=== PATIENT | male | born 1950 | race Two or more races ===

== ENCOUNTER 2016-05-20 23:36 | Inpatient (IN) | payer OTHER ==
[~2016-05-20] VITALS: Ht 167.6 cm; Wt 84.0 kg
[2016-05-20] MEDS ORDERED: ONDANSETRON HCL 4 MG/2 ML VIAL ONE (23:46)
[2016-05-20] MEDS ORDERED: MORPHINE SULFATE 4 MG/ML SYRG ONE (23:46)
[2016-05-20] MEDS ORDERED: HEPARIN SODIUM (PORCINE) 5000 UNITS/ML 1ML VIAL ONE (23:46)
[2016-05-21] VITALS (75 sets, daily range): BP systolic 104–160; BP diastolic 57–119
[2016-05-21] MEDS ORDERED: LIDOCAINE 2%HCL (LOCAL ANESTH.) INJ 20ML MDV ONE (00:06)
[2016-05-21] MEDS ORDERED: IOHEXOL 350 MG/ML 100ML IJ ONE (00:06)
[2016-05-21] MEDS ORDERED: EPTIFIBATIDE INJ (2MG/ML) 10ML VIAL IV ONE (00:08)
[2016-05-21] MEDS ORDERED: ANGIOMAX 250 MG VIAL IV ONE (00:08)
[2016-05-21] MEDS ORDERED: fentaNYL CITRATE 100 MCG/2 ML VL ONE (00:08)
[2016-05-21] MEDS ORDERED: SODIUM CHL 0.9% 50 ML ONE (00:08)
[2016-05-21] MEDS ORDERED: MIDAZOLAM HCL 1MG/1ML-2 ML VIAL ONE (00:08)
[2016-05-21 00:22] LABS: Basophils # (auto) 0.2 uL; Basophils % (auto) 1.7 % (0.0-2.0); Eosinophils # (auto) 0.1 uL; Hematocrit 53.2 % (41.0-53.0); Hemoglobin 17.3 g/dL (13.5-17.5); Lymphocytes # (auto) 2.3 uL; Lymphocytes % (auto) 16.2 % (10.0-50.0); Mean Corpuscular Hgb Conc. 32.6 g/dL (32.0-36.0); Mean Corpuscular Volume 89.1 fL (80.0-100.0); Mean Platelet Volume 9.6 fL (7.4-10.4); Monocytes # (auto) 1.3 uL; Monocytes % (auto) 9.1 % (0.0-12.0); Neutrophils # (auto) 10.4 uL; Platelet Count (auto) 319 10^3/uL (140-450); Red Cell Distribution Width 12.4 % (11.6-16.0); SUSPECT VIEW TRANSMISSION; White Blood Cell 14.3 10^3/uL (4.4-10.8)
[2016-05-21] MEDS ORDERED: NITROGLYCERIN 0.4MG/DOSE SPRAY 4.9GM ONE (00:30)
[2016-05-21 00:40] LABS: INR 1.07 (0.9-1.15); Partial Thromboplastin Time 28.9 sec (22.64-33.71)
[2016-05-21] MEDS ORDERED: NITROGLYCERIN 50MG/250ML 250 ML IV ONE ×2 (00:41→01:00)
[2016-05-21] MEDS ORDERED: HEPARIN DRIP/D5W 100UNITS/ML 250 ML IV ONE (00:42)
[2016-05-21 00:43] LABS: Albumin 3.9 g/dL (3.4-5.0); BUN/Creatinine Ratio 9.4; Calcium 9.9 mg/dL (8.5-10.1); Magnesium 2.1 mg/dL (1.6-2.6); Potassium 5.5 mmol/L (3.5-5.1)
[2016-05-21 00:46] LABS: Bilirubin, Total 0.5 mg/dL (0.2-1.0); Total Protein 8.3 g/dL (6.4-8.2)
[2016-05-21 00:49] LABS: B-Type Natriuretic Peptide 30.7 pg/mL (0-100); Temperature: 21.9 C (20.0-25.0)
[2016-05-21] MEDS ORDERED: NITROGLYCERIN 0.4 MG SL TAB SL PRN (01:00)
[2016-05-21] MEDS ORDERED: DEXTROSE (50%) 50ML SYRG IV PRN (01:00)
[2016-05-21] MEDS ORDERED: HEPARIN SODIUM (PORCINE) 5000 UNITS/ML 1ML VIAL IV ONE (01:00)
[2016-05-21] MEDS ORDERED: MORPHINE SULFATE 4 MG/ML SYRG IV ONE (01:15)
[2016-05-21] MEDS ORDERED: ONDANSETRON HCL 4 MG/2 ML VIAL IV ONE (01:15)
[2016-05-21] MEDS: HEPARIN DRIP/D5W 100UNITS/ML 250 ML IV SCH ×2 (01:20→21:39)
[2016-05-21] MEDS: MORPHINE SULF INJ 2 MG/ML SYRINGE 1ML IV PRN ×2 (03:24→13:18)
[2016-05-21] MEDS: InsuLIN REG 1unit/0.01ml Soln (100units/ml) SC SCH ×3 (06:00→18:05)
[2016-05-21] MEDS ORDERED: HEPARIN SODIUM (PORCINE) 5000 UNITS/ML 1ML VIAL SC SCH (06:00)
[2016-05-21] MEDS: ACCU-CHEK COMFORT CURVE STRIP VI SCH ×3 (06:26→17:54)
[2016-05-21 06:35] LABS: Basophils # (auto) 0.1 uL; Basophils % (auto) 0.4 % (0.0-2.0); Eosinophils # (auto) 0.1 uL; Eosinophils % (auto) 0.6 % (0.0-7.0); Hematocrit 44.7 % (41.0-53.0); Hemoglobin 14.7 g/dL (13.5-17.5); Lymphocytes # (auto) 2.1 uL; Lymphocytes % (auto) 16.2 % (10.0-50.0); Mean Corpuscular Hemoglobin 28.9 pg (28.0-32.0); Mean Corpuscular Hgb Conc. 32.9 g/dL (32.0-36.0); Mean Corpuscular Volume 87.8 fL (80.0-100.0); Monocytes # (auto) 0.8 uL; Neutrophils % (auto) 76.8 % (37.0-80.0); Platelet Count (auto) 277 10^3/uL (140-450); Red Cell Distribution Width 13.2 % (11.6-16.0)
[2016-05-21 06:50] LABS: INR 1.08 (0.9-1.15); Partial Thromboplastin Time 56.6 sec (22.64-33.71); Prothrombin Time 11.1 sec (9.37-12.3)
[2016-05-21] MEDS ORDERED: METOPROLOL TARTRATE 1MG/1ML-5ML VIAL IV ONE ×2 (07:43→07:45)
[2016-05-21] MEDS ORDERED: ACCU-CHEK COMFORT CURVE STRIP VI ONE (07:45)
[2016-05-21] MEDS ORDERED: CHLORHEXIDINE 4% TOPICAL soln 473ML TOP ONE (07:45)
[2016-05-21] MEDS ORDERED: CHLORHEXIDINE 0.12% ORAL rinse 473ML MT ONE (07:45)
[2016-05-21 07:55] LABS: BUN/Creatinine Ratio 14.3; Calcium 9.1 mg/dL (8.5-10.1); Potassium 3.9 mmol/L (3.5-5.1)
[2016-05-21 08:32] LABS: Cholesterol 182 mg/dL (<200); HDL Cholesterol 43 mg/dL (40-59); LDL Cholesterol 118 mg/dL (<100); Triglycerides 162 mg/dL (<150)
[2016-05-21 08:43] LABS: Urine Bilirubin Negative (Negative); Urine Color Yellow (Yellow); Urine Ketone Negative (Negative); Urine Nitrite Negative (Negative); Urine RBC 11 /hpf (0 - 3); Urine Squamous Epithelial Cell FEW /hpf (<5); Urine Urobilinogen Normal (Negative); Urine pH 5.5 (5.0-8.0)
[2016-05-21 08:47] LABS: Urine Blood 1+ /uL (Negative); Urine Glucose 3+ mg/dL (Normal)
[2016-05-21] MEDS ORDERED: METOPROLOL TARTRATE 25 MG TAB PO ONE (08:50)
[2016-05-21] MEDS ORDERED: METOPROLOL SUCCINATE XL 50 MG TAB PO ONE (10:00)
[2016-05-21] MEDS ORDERED: ARTIFICIAL TEARS 15ml EACHEYE PRN (11:00)
[2016-05-21] MEDS ORDERED: GLIM4TAB42 PO (18:29)
[2016-05-21] MEDS ORDERED: METF-312 PO (18:29)
[2016-05-21] MEDS ORDERED: ALLO300T2 PO (18:29)
[2016-05-21] MEDS: METOPROLOL TARTRATE 25 MG TAB PO SCH (21:37)
[2016-05-21] MEDS ORDERED: METOPROLOL TARTRATE 25 MG TAB PO SCH ×2 (22:00)
[2016-05-22] VITALS (25 sets, daily range): BP systolic 111–162; BP diastolic 44–95
[2016-05-22] MEDS: ACCU-CHEK COMFORT CURVE STRIP VI SCH ×4 (00:04→18:26)
[2016-05-22] MEDS: InsuLIN REG 1unit/0.01ml Soln (100units/ml) SC SCH ×4 (00:07→18:23)
[2016-05-22 03:49] LABS: Basophils # (auto) 0 uL; Basophils % (auto) 0.1 % (0.0-2.0); Eosinophils # (auto) 0.1 uL; Eosinophils % (auto) 0.6 % (0.0-7.0); Hematocrit 42.8 % (41.0-53.0); Hemoglobin 14.3 g/dL (13.5-17.5); Lymphocytes # (auto) 1.6 uL; Lymphocytes % (auto) 13.2 % (10.0-50.0); Mean Corpuscular Hemoglobin 29.1 pg (28.0-32.0); Mean Corpuscular Hgb Conc. 33.4 g/dL (32.0-36.0); Mean Corpuscular Volume 87.2 fL (80.0-100.0); Mean Platelet Volume 8.9 fL (7.4-10.4); Monocytes % (auto) 8.3 % (0.0-12.0); Neutrophils # (auto) 9.6 uL; Neutrophils % (auto) 77.8 % (37.0-80.0); Platelet Count (auto) 239 10^3/uL (140-450); White Blood Cell 12.4 10^3/uL (4.4-10.8)
[2016-05-22 04:10] LABS: BUN/Creatinine Ratio 10.8; Magnesium 1.9 mg/dL (1.6-2.6); Potassium 3.9 mmol/L (3.5-5.1)
[2016-05-22] MEDS ORDERED: NITROGLYCERIN 50MG/250ML 250 ML IV ONE (08:09)
[2016-05-22] MEDS: NITROGLYCERIN 50MG/250ML 250 ML IV SCH (08:18)
[2016-05-22] MEDS: METOPROLOL TARTRATE 25 MG TAB PO SCH ×2 (09:37→21:32)
[2016-05-22] MEDS: MORPHINE SULF INJ 2 MG/ML SYRINGE 1ML IV PRN ×2 (10:09→17:20)
[2016-05-22] MEDS ORDERED: ALBUTEROL SULF 2.5 MG/0.5ML(0.5%) NEB SOLN NEB PRN (14:15)
[2016-05-22] MEDS ORDERED: TEMAZEPAM 15 MG CAP PO PRN (14:30)
[2016-05-22] MEDS ORDERED: AMIODARONE HCL 200 MG TAB PO ONE (15:00)
[2016-05-22] MEDS ORDERED: ALPRAZolam 0.25 MG TAB ONE (15:24)
[2016-05-22] MEDS: ALPRAZolam 0.25 MG TAB PO SCH (15:31)
[2016-05-22] MEDS ORDERED: IPRATROPIUM BROM 0.5 MG/2.5ML INH SOL NEB SCH (18:00)
[2016-05-22] MEDS: HEPARIN DRIP/D5W 100UNITS/ML 250 ML IV SCH (18:26)
[2016-05-22] MEDS: HYDROmorphone HCL 2 MG/ML VL IV PRN (21:32)
[2016-05-22] MEDS: ATORVASTATIN 20 MG TAB PO SCH (21:33)
[2016-05-23] VITALS (35 sets, daily range): BP systolic 102–133; BP diastolic 53–101
[2016-05-23] MEDS: NITROGLYCERIN 50MG/250ML 250 ML IV SCH (00:30)
[2016-05-23] MEDS: ACCU-CHEK COMFORT CURVE STRIP VI SCH ×4 (00:30→17:51)
[2016-05-23] MEDS: InsuLIN REG 1unit/0.01ml Soln (100units/ml) SC SCH ×4 (00:34→17:53)
[2016-05-23 05:03] LABS: INR 1.1 (0.9-1.15); Partial Thromboplastin Time 61.9 sec (22.64-33.71); Prothrombin Time 11.3 sec (9.37-12.3)
[2016-05-23] MEDS: HYDROmorphone HCL 2 MG/ML VL IV PRN ×3 (08:59→21:34)
[2016-05-23] MEDS ORDERED: MELATAB2 PO (09:06)
[2016-05-23] MEDS: METOPROLOL TARTRATE 25 MG TAB PO SCH ×2 (09:13→21:39)
[2016-05-23] MEDS: AMIODARONE HCL 200 MG TAB PO SCH (09:13)
[2016-05-23] MEDS: ALPRAZolam 0.25 MG TAB PO SCH ×2 (09:15→21:39)
[2016-05-23] MEDS ORDERED: MAGNESIUM CITRATE SOLUTION 300 ML BTL PO ONE ×2 (10:00→14:00)
[2016-05-23] MEDS: HEPARIN DRIP/D5W 100UNITS/ML 250 ML IV SCH (13:30)
[2016-05-23] MEDS: ATORVASTATIN 20 MG TAB PO SCH (21:39)
[2016-05-24] VITALS (67 sets, daily range): BP systolic 99–157; BP diastolic 43–119
[2016-05-24] MEDS: InsuLIN REG 1unit/0.01ml Soln (100units/ml) SC SCH ×4 (00:53→17:54)
[2016-05-24] MEDS: HYDROmorphone HCL 2 MG/ML VL IV PRN ×2 (02:58→09:09)
[2016-05-24 03:52] LABS: Basophils # (auto) 0 uL; Basophils % (auto) 0.1 % (0.0-2.0); Eosinophils # (auto) 0.1 uL; Eosinophils % (auto) 0.9 % (0.0-7.0); Hemoglobin 13.6 g/dL (13.5-17.5); Lymphocytes # (auto) 1.2 uL; Lymphocytes % (auto) 9.7 % (10.0-50.0); Mean Corpuscular Hemoglobin 29.7 pg (28.0-32.0); Mean Corpuscular Volume 87.3 fL (80.0-100.0); Mean Platelet Volume 9.2 fL (7.4-10.4); Monocytes # (auto) 1.2 uL; Monocytes % (auto) 9.6 % (0.0-12.0); Neutrophils # (auto) 10.1 uL; Neutrophils % (auto) 79.7 % (37.0-80.0); Platelet Count (auto) 180 10^3/uL (140-450); Red Cell Distribution Width 13.1 % (11.6-16.0); White Blood Cell 12.7 10^3/uL (4.4-10.8)
[2016-05-24 03:59] LABS: INR 1.14 (0.9-1.15); Partial Thromboplastin Time 54.7 sec (22.64-33.71); Prothrombin Time 11.7 sec (9.37-12.3)
[2016-05-24 04:04] LABS: Calcium 8.1 mg/dL (8.5-10.1); Potassium 4.2 mmol/L (3.5-5.1)
[2016-05-24 04:06] LABS: BUN/Creatinine Ratio 15.2
[2016-05-24] MEDS: HEPARIN DRIP/D5W 100UNITS/ML 250 ML IV SCH ×3 (06:00→23:44)
[2016-05-24] MEDS: NITROGLYCERIN 50MG/250ML 250 ML IV SCH (06:00)
[2016-05-24] MEDS: ACCU-CHEK COMFORT CURVE STRIP VI SCH ×4 (06:00→17:51)
[2016-05-24] MEDS: AMIODARONE HCL 200 MG TAB PO SCH ×2 (09:48→12:10)
[2016-05-24] MEDS: METOPROLOL TARTRATE 25 MG TAB PO SCH ×3 (09:48→21:38)
[2016-05-24] MEDS: ALPRAZolam 0.25 MG TAB PO SCH ×2 (09:48→21:37)
[2016-05-24] MEDS ORDERED: METOCLOPRAMIDE HCL 5MG/ml INJ 2ml VIAL ONE (09:55)
[2016-05-24] MEDS ORDERED: METOCLOPRAMIDE HCL 5MG/ml INJ 2ml VIAL IV PRN (10:00)
[2016-05-24] MEDS ORDERED: MUPIROCIN 2% OINT 22GM TOP ONE (20:28)
[2016-05-24] MEDS ORDERED: CHLORHEXIDINE 0.12% ORAL rinse 473ML MT ONE (20:28)
[2016-05-24] MEDS ORDERED: MUPIROCIN 2% OINT 22GM TOP SCH (21:00)
[2016-05-24] MEDS: MUPIROCIN 2% OINT 22GM TOP SCH (21:35)
[2016-05-24] MEDS: ATORVASTATIN 20 MG TAB PO SCH (21:37)
[2016-05-25] VITALS (45 sets, daily range): BP systolic 19–135; BP diastolic 6–75
[2016-05-25] MEDS: InsuLIN REG 1unit/0.01ml Soln (100units/ml) SC SCH ×2 (00:08→05:38)
[2016-05-25] MEDS: ACCU-CHEK COMFORT CURVE STRIP VI SCH ×10 (00:09→23:09)
[2016-05-25] MEDS ORDERED: CHLORHEXIDINE 4% TOPICAL soln 473ML TOP ONE ×2 (02:00)
[2016-05-25] MEDS: MORPHINE SULF INJ 2 MG/ML SYRINGE 1ML IV PRN (02:10)
[2016-05-25] MEDS ORDERED: CHLORHEXIDINE 0.12% ORAL rinse 473ML MT ONE ×2 (05:00→06:00)
[2016-05-25] MEDS ORDERED: ACCU-CHEK COMFORT CURVE STRIP VI ONE ×2 (06:00)
[2016-05-25] MEDS: MUPIROCIN 2% OINT 22GM TOP SCH (06:39)
[2016-05-25] MEDS ORDERED: ROCURONIUM 10MG/ML 10ML VIAL IV ONE ×2 (06:44→11:44)
[2016-05-25] MEDS ORDERED: PAPAVERINE HCL 60 MG/2 ML 2ML VIAL ONE (06:45)
[2016-05-25] MEDS ORDERED: NEOMYCIN-BACITRACIN-POLYM 15GM TOP OINT TOP ONE (06:45)
[2016-05-25] MEDS ORDERED: ceFAZolin 1GM VL ONE (06:45)
[2016-05-25] MEDS ORDERED: HEPARIN 1,000 UNITS/ml 1ML VIAL ONE (06:45)
[2016-05-25] MEDS ORDERED: MIDAZOLAM HCL 1MG/1ML-2 ML VIAL ONE (06:50)
[2016-05-25] MEDS ORDERED: ePHEDrine SULFATE 50 MG/ML AMP ONE (06:53)
[2016-05-25] MEDS ORDERED: LIDOCAINE 2%HCL (LOCAL ANESTH.) INJ 20ML MDV ONE (06:53)
[2016-05-25] MEDS ORDERED: ALBUMIN 25% 200 ML IV ONE (06:59)
[2016-05-25] MEDS ORDERED: ceFAZolin 1GM 2 GM in D5W 5% 50 ML IV ONE (07:00)
[2016-05-25] MEDS ORDERED: VANCOMYCIN 1GM/250ML D5W 250 ML IV ONE (07:00)
[2016-05-25] MEDS ORDERED: VASOPRESSIN 50 UNITS in SODIUM CHL 0.9% 247.5 ML IV ONE (08:00)
[2016-05-25] MEDS ORDERED: EPINEPHrine HCL INJECTION 4 MG in D5W 5% 250 ML IV ONE (08:00)
[2016-05-25] MEDS ORDERED: HEPARIN 30000 UNITS in SODIUM CHLORIDE 0.9% 1000 ML IV ONE (08:00)
[2016-05-25] MEDS ORDERED: AMINOCAPROIC ACID 10 GM in SODIUM CHL 0.9% 100 ML IV ONE (08:00)
[2016-05-25] MEDS ORDERED: InsuLIN R (HUMAN) 100 UNITS in SODIUM CHL 0.9% 99 ML IV ONE (08:00)
[2016-05-25] MEDS ORDERED: AMINOCAPROIC ACID 5 GM in SODIUM CHL 0.9% 250 ML IV ONE (08:00)
[2016-05-25] MEDS ORDERED: PHENYLEPHRINE INJ 20 MG in NS 0.9% 248 ML IV ONE (08:00)
[2016-05-25] MEDS: NITROGLYCERIN 50MG/250ML 250 ML IV SCH (08:13)
[2016-05-25] MEDS ORDERED: fentaNYL CITRATE 10 ML ONE (08:26)
[2016-05-25] MEDS ORDERED: PLASMA-LYTE A pH7.4 5,000 ML INJ ONE (08:41)
[2016-05-25] MEDS ORDERED: PROPOFOL 100 ML IV ONE ×2 (09:20→11:28)
[2016-05-25] MEDS ORDERED: POTASSIUM CHL 2MEQ/ML 20ML IV ONE (09:45)
[2016-05-25] MEDS ORDERED: MAGNESIUM SULF 50% 40 MEQ/10 ML VL IV ONE (09:45)
[2016-05-25] MEDS ORDERED: MILRINONE 1 MG/ML 20ML VIAL INJ IV ONE (09:45)
[2016-05-25] MEDS ORDERED: PHENYLEPHRINE HCL 10 MG/ML VL IV ONE (09:45)
[2016-05-25] MEDS ORDERED: SODIUM BICARBONATE 8.4 % INJ 50ML VIAL IV ONE (09:45)
[2016-05-25] MEDS ORDERED: DEXAMETHASONE SODIUM PHOSP 120 MG/30ml VIAL IV ONE (09:45)
[2016-05-25] MEDS ORDERED: LIDOCAINE HCL 100 MG/5ML (2%) SYRG INJ IV ONE ×2 (09:45→10:11)
[2016-05-25] MEDS ORDERED: ADENOSINE 6 MG/2 ML INJ IV ONE (09:45)
[2016-05-25] MEDS ORDERED: CALCIUM CHLOR(10%) 100MG/ML 10ML SYRINGE IV ONE ×2 (09:45→10:12)
[2016-05-25] MEDS ORDERED: HEPARIN SODIUM (PORCINE) 5000 UNITS/ML 1ML VIAL SC ONE (09:45)
[2016-05-25] MEDS ORDERED: AMINOCAPROIC ACID 5 GM/20 ML VL IV ONE (09:45)
[2016-05-25] MEDS ORDERED: DOBUTamine 1000MCG/ML 250 ML IV ONE (10:08)
[2016-05-25] MEDS ORDERED: DOPamine 1600MCG/ML 250 ML IV ONE (10:08)
[2016-05-25] MEDS ORDERED: NITROGLYCERIN 50MG/250ML 250 ML IV ONE (10:09)
[2016-05-25] MEDS ORDERED: NOREPINEPHRINE BITARTRATE 250 ML IV ONE ×2 (10:09→11:46)
[2016-05-25] MEDS ORDERED: NICARDIPINE 25MG/250ML BAG KIT 250 ML IV ONE (10:09)
[2016-05-25] MEDS ORDERED: MILRINONE 20MG/100ML 100 ML IV ONE ×2 (10:09→11:47)
[2016-05-25] MEDS ORDERED: PHENYLEPHRINE IV 250 ML IV ONE (10:10)
[2016-05-25] MEDS ORDERED: AMIODARONE HCL (50 MG/ ML) 3 ML VIAL IV ONE (10:10)
[2016-05-25] MEDS ORDERED: VASOPRESSIN 20 UNIT/ML ONE (10:10)
[2016-05-25] MEDS ORDERED: ALBUMIN 5% 750 ML IV ONE (10:11)
[2016-05-25] MEDS ORDERED: SODIUM BICARBONATE 8.4% INJ 50ML SYRINGE ONE (10:12)
[2016-05-25] MEDS ORDERED: AMIODARONE HCL 900 MG in DEXTROSE 500 ML IV SCH ×2 (14:58→20:58)
[2016-05-25] MEDS ORDERED: MAGNESIUM SULFATE 1GM/100ML 100 ML IV PRN (15:00)
[2016-05-25] MEDS ORDERED: ONDANSETRON HCL 4 MG/2 ML VIAL IV PRN (15:00)
[2016-05-25] MEDS ORDERED: MORPHINE SULFATE 4 MG/ML SYRG IV PRN (15:00)
[2016-05-25] MEDS ORDERED: SODIUM BICARBONATE 8.4% INJ 50ML SYRINGE IV PRN (15:00)
[2016-05-25] MEDS ORDERED: IPRATROPIUM BROM 0.5 MG/2.5ML INH SOL NEB PRN (15:00)
[2016-05-25] MEDS ORDERED: AMIODARONE HCL 150 MG in D5W 5% 100 ML IV ONE (15:00)
[2016-05-25 15:34] LABS: Hematocrit 34.8 % (41.0-53.0); Hemoglobin 11.7 g/dL (13.5-17.5); Mean Corpuscular Hemoglobin 29.3 pg (28.0-32.0); Mean Corpuscular Hgb Conc. 33.5 g/dL (32.0-36.0); Mean Corpuscular Volume 87.3 fL (80.0-100.0); Mean Platelet Volume 8.7 fL (7.4-10.4); Platelet Count (auto) 145 10^3/uL (140-450); Red Cell Distribution Width 13.3 % (11.6-16.0); SUSPECT VIEW TRANSMISSION; White Blood Cell 17.5 10^3/uL (4.4-10.8)
[2016-05-25] MEDS ORDERED: INSULIN DRIP 100 UNIT/100ML 100 ML IV SCH (15:35)
[2016-05-25 15:42] LABS: Metamyelocytes % 0; Myelocytes % 0; Promyelocytes % 0; Reactive Lymphocytes 0
[2016-05-25] MEDS ORDERED: DEXTROSE (50%) 50ML SYRG IV PRN (15:45)
[2016-05-25 15:48] LABS: Partial Thromboplastin Time 37.3 sec (22.64-33.71)
[2016-05-25 15:59] LABS: INR 1.22 (0.9-1.15); Prothrombin Time 12.6 sec (9.37-12.3)
[2016-05-25 16:06] LABS: Albumin 2.9 g/dL (3.4-5.0); BUN/Creatinine Ratio 14.2; Calcium 7.9 mg/dL (8.5-10.1); Magnesium 3.3 mg/dL (1.6-2.6); Potassium 4.6 mmol/L (3.5-5.1)
[2016-05-25 16:21] LABS: Phosphorus 0.8 mg/dL (2.6-4.90)
[2016-05-25] MEDS ORDERED: SODIUM PHOSPHATES 20 MEQ in SODIUM CHL 0.9% 100 ML IV ONE (16:30)
[2016-05-25] MEDS ORDERED: CALCIUM GLUC 4.65 MEQ/10ML 4.65 MEQ in SODIUM CHL 0.9% 50 ML IV ONE (16:30)
[2016-05-25] MEDS: ALBUMIN 5% 250 ML IV PRN ×2 (16:30→20:30)
[2016-05-25] MEDS: ceFAZolin 1GM/50ML D5W 50 ML IV SCH ×2 (16:41→22:59)
[2016-05-25 16:52] LABS: Platelet Estimate Adequate; RBC Morphology Normal
[2016-05-25] MEDS: NICARDIPINE 25MG/250ML BAG KIT 250 ML IV SCH ×2 (16:54→19:48)
[2016-05-25] MEDS: MILRINONE 20MG/100ML 100 ML IV SCH ×2 (16:55→20:36)
[2016-05-25] MEDS: NOREPINEPHRINE BITARTRATE 250 ML IV SCH (16:57)
[2016-05-25] MEDS: PANTOPRAZOLE SODIUM 40 MG/10 ML VIAL IV SCH (16:57)
[2016-05-25] MEDS: SODIUM CHLORIDE 0.9% 1,000 ML IV SCH (16:58)
[2016-05-25] MEDS: PROPOFOL 100 ML IV SCH ×2 (16:58→23:00)
[2016-05-25] MEDS: SODIUM CHLORIDE 0.9% 500 ML IV SCH (16:58)
[2016-05-25] MEDS: ACETAMINOPHEN IV 100 ML IV SCH (18:30)
[2016-05-25] MEDS: VANCOMYCIN 1GM/250ML D5W 250 ML IV SCH (19:00)
[2016-05-25] MEDS: POTASSIUM CHL 20MEQ/100ML 100 ML IV PRN ×3 (20:27→22:18)
[2016-05-25] MEDS: CHLORHEXIDINE 0.12% ORAL rinse 473ML MT SCH (22:18)
[2016-05-25] MEDS: INSULIN DRIP 100 UNIT/100ML 100 ML IV SCH (22:31)
[2016-05-25 22:35] LABS: BUN/Creatinine Ratio 10.7; Basophils # (auto) 0 uL; Calcium 7.6 mg/dL (8.5-10.1); Eosinophils # (auto) 0 uL; Hematocrit 32.6 % (41.0-53.0); Hemoglobin 10.9 g/dL (13.5-17.5); Lymphocytes # (auto) 0.4 uL; Lymphocytes % (auto) 2.3 % (10.0-50.0); Mean Corpuscular Hemoglobin 29.3 pg (28.0-32.0); Mean Corpuscular Hgb Conc. 33.5 g/dL (32.0-36.0); Mean Corpuscular Volume 87.5 fL (80.0-100.0); Mean Platelet Volume 9.5 fL (7.4-10.4); Monocytes # (auto) 1.1 uL; Monocytes % (auto) 6.9 % (0.0-12.0); Neutrophils # (auto) 14.2 uL; Neutrophils % (auto) 90.8 % (37.0-80.0); Platelet Count (auto) 162 10^3/uL (140-450); Red Cell Distribution Width 13.1 % (11.6-16.0); SUSPECT VIEW TRANSMISSION; White Blood Cell 15.6 10^3/uL (4.4-10.8)
[2016-05-25 22:43] LABS: Phosphorus 1.1 mg/dL (2.6-4.90)
[2016-05-25] MEDS: MORPHINE SULFATE 4 MG/ML SYRG IV PRN (23:09)
[2016-05-26] VITALS (105 sets, daily range): BP systolic 19–151; BP diastolic 7–82
[2016-05-26] MEDS: ACETAMINOPHEN IV 100 ML IV SCH ×3 (00:10→12:13)
[2016-05-26] MEDS: NICARDIPINE 25MG/250ML BAG KIT 250 ML IV SCH ×5 (00:48→20:48)
[2016-05-26] MEDS: ACCU-CHEK COMFORT CURVE STRIP VI SCH ×15 (01:00→15:01)
[2016-05-26] MEDS: PROPOFOL 100 ML IV SCH ×3 (02:11→14:26)
[2016-05-26] MEDS: POTASSIUM CHL 20MEQ/100ML 100 ML IV PRN ×2 (03:29→05:40)
[2016-05-26 04:47] LABS: Hematocrit 28.2 % (41.0-53.0); Hemoglobin 9.5 g/dL (13.5-17.5); Mean Corpuscular Hemoglobin 29.4 pg (28.0-32.0); Mean Corpuscular Hgb Conc. 33.6 g/dL (32.0-36.0); Mean Corpuscular Volume 87.4 fL (80.0-100.0); Mean Platelet Volume 8.8 fL (7.4-10.4); Platelet Count (auto) 146 10^3/uL (140-450); Red Cell Distribution Width 12.5 % (11.6-16.0); SUSPECT VIEW TRANSMISSION; White Blood Cell 17.9 10^3/uL (4.4-10.8)
[2016-05-26 04:48] LABS: BUN/Creatinine Ratio 16.3; Calcium 6.4 mg/dL (8.5-10.1); Magnesium 2.5 mg/dL (1.6-2.6); Phosphorus 1.3 mg/dL (2.6-4.90); Potassium 3.9 mmol/L (3.5-5.1)
[2016-05-26 04:50] LABS: Promyelocytes % 0; Reactive Lymphocytes 0
[2016-05-26] MEDS: SODIUM CHLORIDE 0.9% 1,000 ML IV SCH ×2 (05:00→14:04)
[2016-05-26] MEDS ORDERED: SODIUM PHOSPHATES 20 MEQ in SODIUM CHL 0.9% 100 ML IV ONE (05:30)
[2016-05-26] MEDS ORDERED: CALCIUM GLUC 4.65 MEQ/10ML 4.65 MEQ in SODIUM CHL 0.9% 50 ML IV ONE ×2 (05:30→15:30)
[2016-05-26] MEDS ORDERED: CALCIUM GLUC 4.65 MEQ/10ML IV ONE (05:36)
[2016-05-26 05:37] LABS: Hypersegmented Neutrophils Present; Metamyelocytes % 1; Myelocytes % 4; Platelet Estimate Adequate
[2016-05-26 05:39] LABS: Ovalocytes FEW; Tear Drop Cells FEW
[2016-05-26] MEDS ORDERED: ALBUMIN 25% 100 ML IV ONE (06:15)
[2016-05-26] MEDS ORDERED: FUROSEMIDE 20 MG/2 ML VIAL IV ONE (06:15)
[2016-05-26] MEDS: ceFAZolin 1GM/50ML D5W 50 ML IV SCH ×3 (06:37→22:44)
[2016-05-26] MEDS: VANCOMYCIN 1GM/250ML D5W 250 ML IV SCH ×2 (07:45→18:43)
[2016-05-26] MEDS: MILRINONE 20MG/100ML 100 ML IV SCH ×2 (07:55→18:58)
[2016-05-26] MEDS: MORPHINE SULFATE 4 MG/ML SYRG IV PRN ×2 (08:35→16:11)
[2016-05-26] MEDS: PANTOPRAZOLE SODIUM 40 MG/10 ML VIAL IV SCH (09:18)
[2016-05-26] MEDS: INSULIN DRIP 100 UNIT/100ML 100 ML IV SCH (09:29)
[2016-05-26] MEDS: CHLORHEXIDINE 0.12% ORAL rinse 473ML MT SCH ×2 (09:30→21:44)
[2016-05-26] MEDS: NITROGLYCERIN 50MG/250ML 250 ML IV SCH ×3 (10:45→17:07)
[2016-05-26 10:49] LABS: INR 1.14 (0.9-1.15); Partial Thromboplastin Time 38.3 sec (22.64-33.71); Prothrombin Time 11.7 sec (9.37-12.3)
[2016-05-26 10:51] LABS: Albumin 3.2 g/dL (3.4-5.0); BUN/Creatinine Ratio 15.5; Bilirubin, Total 0.7 mg/dL (0.2-1.0); Calcium 7.5 mg/dL (8.5-10.1); Magnesium 2.9 mg/dL (1.6-2.6); Phosphorus 1.4 mg/dL (2.6-4.90); Potassium 4.8 mmol/L (3.5-5.1); Total Protein 5.6 g/dL (6.4-8.2)
[2016-05-26] MEDS: PROPRANOLOL HCL 1 MG/ML VIAL IV PRN ×2 (13:11→15:10)
[2016-05-26] MEDS ORDERED: hydrALAZINE HCL 20 MG/ML VL IV PRN (13:15)
[2016-05-26] MEDS ORDERED: POTASSIUM CHL 10% (20 MEQ/15ML) ORAL SOLN PO PRN (14:00)
[2016-05-26] MEDS: NOREPINEPHRINE BITARTRATE 250 ML IV SCH (14:27)
[2016-05-26] MEDS: SODIUM CHLORIDE 0.9% 500 ML IV SCH (14:27)
[2016-05-26 14:52] LABS: BUN/Creatinine Ratio 14.7; Calcium 7.7 mg/dL (8.5-10.1); Magnesium 2.9 mg/dL (1.6-2.6); Phosphorus 2.6 mg/dL (2.6-4.90); Potassium 4.2 mmol/L (3.5-5.1)
[2016-05-26] MEDS ORDERED: PROPRANOLOL HCL 1 MG/ML VIAL IV PRN (15:15)
[2016-05-26] MEDS ORDERED: MILK OF MAGNESIA 30ML SUSP PO PRN (16:00)
[2016-05-26] MEDS ORDERED: INSULIN DRIP 100 UNIT/100ML 100 ML IV SCH (16:25)
[2016-05-26] MEDS ORDERED: MORPHINE SULFATE 4 MG/ML SYRG IV PRN ×2 (17:00)
[2016-05-26] MEDS ORDERED: FUROSEMIDE 20 MG/2 ML VIAL IV PRN (17:00)
[2016-05-26] MEDS ORDERED: MORPHINE SULF INJ 2 MG/ML SYRINGE 1ML IV PRN (17:18)
[2016-05-26] MEDS ORDERED: Boost Glucose Control 8 Ounces PO SCH (18:00)
[2016-05-26] MEDS: Boost Glucose Control 8 Ounces PO SCH (18:00)
[2016-05-26] MEDS ORDERED: ASPirin 81 mg TAB PO ONE (18:15)
[2016-05-26] MEDS: IPRATROPIUM BROM 0.5 MG/2.5ML INH SOL NEB SCH ×2 (18:23→22:42)
[2016-05-26] MEDS: METOPROLOL TARTRATE 1MG/1ML-5ML VIAL IV SCH ×2 (18:48→23:54)
[2016-05-26] MEDS: FUROSEMIDE 40 MG TAB PO SCH (19:11)
[2016-05-26] MEDS: HYDROcodone-ACET 7.5/325MG TAB PO PRN (19:29)
[2016-05-26] MEDS: AMIODARONE HCL 200 MG TAB PO SCH (21:06)
[2016-05-26] MEDS: DOCUSATE SOD 100 MG CAP PO SCH (21:43)
[2016-05-26] MEDS: ATORVASTATIN 20 MG TAB PO SCH (21:43)
[2016-05-26] MEDS ORDERED: METOPROLOL TARTRATE 25 MG TAB PO SCH ×2 (22:00)
[2016-05-26] MEDS ORDERED: ALBUMIN 25% 50 ML IV SCH (22:00)
[2016-05-26] MEDS: ACETYLCYSTEINE 10 %(100MG/ML) SOL 4ML NEB SCH (22:42)
[2016-05-27] VITALS (98 sets, daily range): BP systolic 21–138; BP diastolic 5–85
[2016-05-27] MEDS: HYDROcodone-ACET 7.5/325MG TAB PO PRN ×4 (00:09→12:52)
[2016-05-27] MEDS: NICARDIPINE 25MG/250ML BAG KIT 250 ML IV SCH ×2 (01:48→06:48)
[2016-05-27] MEDS: IPRATROPIUM BROM 0.5 MG/2.5ML INH SOL NEB SCH ×7 (01:56→22:26)
[2016-05-27] MEDS: MILRINONE 20MG/100ML 100 ML IV SCH ×2 (02:30→19:24)
[2016-05-27 04:11] LABS: Hematocrit 27.4 % (41.0-53.0); Hemoglobin 9.1 g/dL (13.5-17.5); Mean Corpuscular Hemoglobin 29.4 pg (28.0-32.0); Mean Corpuscular Hgb Conc. 33.3 g/dL (32.0-36.0); Mean Corpuscular Volume 88.5 fL (80.0-100.0); Mean Platelet Volume 10.1 fL (7.4-10.4); Platelet Count (auto) 143 10^3/uL (140-450); Red Cell Distribution Width 12.9 % (11.6-16.0); SUSPECT VIEW TRANSMISSION; White Blood Cell 20.6 10^3/uL (4.4-10.8)
[2016-05-27 04:16] LABS: Metamyelocytes % 0; Myelocytes % 0; Promyelocytes % 0; Reactive Lymphocytes 0
[2016-05-27 04:31] LABS: Albumin 3.1 g/dL (3.4-5.0); BUN/Creatinine Ratio 17.9; Calcium 7.4 mg/dL (8.5-10.1); Magnesium 2.7 mg/dL (1.6-2.6); Potassium 4.1 mmol/L (3.5-5.1)
[2016-05-27 04:33] LABS: Bilirubin, Total 0.6 mg/dL (0.2-1.0)
[2016-05-27 04:39] LABS: Hypersegmented Neutrophils Present; Platelet Estimate Adequate; RBC Morphology Normal
[2016-05-27] MEDS: METOPROLOL TARTRATE 1MG/1ML-5ML VIAL IV SCH (05:14)
[2016-05-27] MEDS: FUROSEMIDE 40 MG TAB PO SCH ×2 (05:14→17:36)
[2016-05-27] MEDS: ACETYLCYSTEINE 10 %(100MG/ML) SOL 4ML NEB SCH ×3 (06:27→22:26)
[2016-05-27] MEDS: ceFAZolin 1GM/50ML D5W 50 ML IV SCH (06:29)
[2016-05-27] MEDS ORDERED: CALCIUM GLUC 4.65 MEQ/10ML 4.65 MEQ in SODIUM CHL 0.9% 50 ML IV ONE (07:00)
[2016-05-27] MEDS: VANCOMYCIN 1GM/250ML D5W 250 ML IV SCH (07:03)
[2016-05-27] MEDS: FERROUS SULFATE 325 MG TAB PO SCH ×2 (08:29→17:36)
[2016-05-27] MEDS: metFORMIN HYDROCHLORIDE 500 MG TAB PO SCH ×2 (08:30→17:36)
[2016-05-27] MEDS: glyBURIDE 2.5 MG TAB PO SCH (08:30)
[2016-05-27] MEDS: Boost Glucose Control 8 Ounces PO SCH ×3 (08:41→13:30)
[2016-05-27 09:00] LABS: Magnesium 2.8 mg/dL (1.6-2.6); Potassium 4.3 mmol/L (3.5-5.1)
[2016-05-27] MEDS ORDERED: PANTOPRAZOLE 40 MG TAB PO ONE (09:25)
[2016-05-27] MEDS: NITROGLYCERIN 0.4MG/HR TOPICAL PATCH TD SCH (09:32)
[2016-05-27] MEDS: DOCUSATE SOD 100 MG CAP PO SCH ×2 (09:32→21:29)
[2016-05-27] MEDS: METOPROLOL TARTRATE 25 MG TAB PO SCH ×2 (09:33→21:29)
[2016-05-27] MEDS: CHLORHEXIDINE 0.12% ORAL rinse 473ML MT SCH ×2 (09:33→21:28)
[2016-05-27] MEDS: POTASSIUM CHL 20 Meq TABLET PO SCH (09:33)
[2016-05-27] MEDS: ENOXAPARIN SOD 40 MG/0.4 ML SYRINGE SC SCH (09:34)
[2016-05-27] MEDS: AMIODARONE HCL 200 MG TAB PO SCH ×2 (09:34→21:29)
[2016-05-27] MEDS: ASPirin 81 mg TAB PO SCH (09:34)
[2016-05-27] MEDS: PANTOPRAZOLE 40 MG TAB PO SCH (09:37)
[2016-05-27] MEDS ORDERED: AMIODARONE HCL 900 MG in DEXTROSE 500 ML IV SCH (09:54)
[2016-05-27] MEDS ORDERED: PROPRANOLOL HCL 1 MG/ML VIAL IV ONE ×2 (09:58→10:15)
[2016-05-27] MEDS ORDERED: PANTOPRAZOLE SODIUM 40 MG/10 ML VIAL IV SCH (10:00)
[2016-05-27] MEDS: METOCLOPRAMIDE HCL 5MG/ml INJ 2ml VIAL IV PRN ×2 (10:26→22:52)
[2016-05-27] MEDS ORDERED: ALBUMIN 25% 50 ML IV ONE (13:30)
[2016-05-27] MEDS ORDERED: ALBUMIN 5% 250 ML IV ONE (13:30)
[2016-05-27 14:07] LABS: Hematocrit 27.9 % (41.0-53.0); Hemoglobin 9.1 g/dL (13.5-17.5); Mean Corpuscular Hemoglobin 29.2 pg (28.0-32.0); Mean Corpuscular Hgb Conc. 32.7 g/dL (32.0-36.0); Mean Corpuscular Volume 89.1 fL (80.0-100.0); Mean Platelet Volume 10.3 fL (7.4-10.4); Platelet Count (auto) 150 10^3/uL (140-450); Red Cell Distribution Width 13.5 % (11.6-16.0); White Blood Cell 19.2 10^3/uL (4.4-10.8)
[2016-05-27 14:16] LABS: Metamyelocytes % 0; Myelocytes % 0; Promyelocytes % 0; Reactive Lymphocytes 0
[2016-05-27 14:48] LABS: Platelet Estimate Adequate
[2016-05-27] MEDS ORDERED: SODIUM CHLORIDE 0.9% 1,000 ML IV SCH ×3 (14:48)
[2016-05-27] MEDS: SODIUM CHLORIDE 0.9% 500 ML IV SCH (15:20)
[2016-05-27] MEDS: AMIODARONE HCL 900 MG in DEXTROSE 500 ML IV SCH (15:56)
[2016-05-27] MEDS ORDERED: INSULIN DRIP 100 UNIT/100ML 100 ML IV SCH (17:56)
[2016-05-27] MEDS ORDERED: CLOPIDOGREL BISULFATE 75 MG TAB PO ONE (18:00)
[2016-05-27] MEDS ORDERED: FUROSEMIDE 20 MG/2 ML VIAL IV PRN (18:15)
[2016-05-27] MEDS: ATORVASTATIN 20 MG TAB PO SCH (21:30)
[2016-05-27] MEDS: HYDROcodone-ACET 5/325MG TAB PO PRN (22:23)
[2016-05-28] VITALS (98 sets, daily range): BP systolic 17–139; BP diastolic 5–94
[2016-05-28] MEDS: IPRATROPIUM BROM 0.5 MG/2.5ML INH SOL NEB SCH ×5 (02:00→18:06)
[2016-05-28 03:49] LABS: Basophils # (auto) 0 uL; Eosinophils # (auto) 0 uL; Eosinophils % (auto) 0.1 % (0.0-7.0); Hematocrit 31.9 % (41.0-53.0); Hemoglobin 10.6 g/dL (13.5-17.5); Lymphocytes # (auto) 1.5 uL; Lymphocytes % (auto) 7.7 % (10.0-50.0); Mean Corpuscular Hgb Conc. 33.1 g/dL (32.0-36.0); Mean Corpuscular Volume 87.8 fL (80.0-100.0); Monocytes # (auto) 1.5 uL; Monocytes % (auto) 7.4 % (0.0-12.0); Neutrophils # (auto) 16.8 uL; Neutrophils % (auto) 84.8 % (37.0-80.0); Platelet Count (auto) 158 10^3/uL (140-450); Red Cell Distribution Width 13.5 % (11.6-16.0); White Blood Cell 19.8 10^3/uL (4.4-10.8)
[2016-05-28 04:03] LABS: Albumin 3.4 g/dL (3.4-5.0); BUN/Creatinine Ratio 22.9; Calcium 7.7 mg/dL (8.5-10.1); Magnesium 2.8 mg/dL (1.6-2.6); Potassium 4.2 mmol/L (3.5-5.1)
[2016-05-28 04:18] LABS: Bilirubin, Total 0.9 mg/dL (0.2-1.0); Total Protein 6.6 g/dL (6.4-8.2)
[2016-05-28] MEDS: MILRINONE 20MG/100ML 100 ML IV SCH ×3 (04:36→20:29)
[2016-05-28] MEDS: FUROSEMIDE 40 MG TAB PO SCH ×2 (06:06→18:00)
[2016-05-28] MEDS: AMIODARONE HCL 900 MG in DEXTROSE 500 ML IV SCH ×2 (06:17→21:56)
[2016-05-28] MEDS ORDERED: BISACODYL 10 MG RECT SUPP PR ONE (06:45)
[2016-05-28] MEDS ORDERED: METOPROLOL TARTRATE 50 MG TAB PO ONE (06:45)
[2016-05-28] MEDS: metFORMIN HYDROCHLORIDE 500 MG TAB PO SCH (06:50)
[2016-05-28] MEDS: glyBURIDE 2.5 MG TAB PO SCH (06:55)
[2016-05-28] MEDS: HYDROcodone-ACET 5/325MG TAB PO PRN ×2 (06:56→14:27)
[2016-05-28] MEDS: ACETYLCYSTEINE 10 %(100MG/ML) SOL 4ML NEB SCH ×3 (07:21→18:06)
[2016-05-28] MEDS: FERROUS SULFATE 325 MG TAB PO SCH ×2 (08:39→18:00)
[2016-05-28] MEDS: NITROGLYCERIN 0.4MG/HR TOPICAL PATCH TD SCH (10:16)
[2016-05-28] MEDS: CLOPIDOGREL BISULFATE 75 MG TAB PO SCH (10:17)
[2016-05-28] MEDS: ASPirin 81 mg TAB PO SCH (10:19)
[2016-05-28] MEDS: METOPROLOL TARTRATE 25 MG TAB PO SCH ×2 (10:19→21:30)
[2016-05-28] MEDS: POTASSIUM CHL 20 Meq TABLET PO SCH (10:20)
[2016-05-28] MEDS: DOCUSATE SOD 100 MG CAP PO SCH ×2 (10:21→21:30)
[2016-05-28] MEDS: AMIODARONE HCL 200 MG TAB PO SCH ×2 (10:21→21:30)
[2016-05-28] MEDS: CHLORHEXIDINE 0.12% ORAL rinse 473ML MT SCH ×2 (10:21→21:33)
[2016-05-28] MEDS: ENOXAPARIN SOD 40 MG/0.4 ML SYRINGE SC SCH (10:21)
[2016-05-28] MEDS: PANTOPRAZOLE 40 MG TAB PO SCH (10:21)
[2016-05-28] MEDS: METOCLOPRAMIDE HCL 5MG/ml INJ 2ml VIAL IV PRN ×3 (10:42→19:06)
[2016-05-28] MEDS ORDERED: ALBUMIN 25% 50 ML IV ONE ×2 (11:45→11:46)
[2016-05-28] MEDS ORDERED: FUROSEMIDE 20 MG/2 ML VIAL IV ONE ×2 (11:45→12:00)
[2016-05-28] MEDS ORDERED: FUROSEMIDE 20 MG/2 ML VIAL ONE (11:46)
[2016-05-28 12:23] LABS: Magnesium 2.7 mg/dL (1.6-2.6)
[2016-05-28] MEDS: POTASSIUM CHL 20MEQ/100ML 100 ML IV PRN ×2 (12:43→14:30)
[2016-05-28] MEDS: DOPamine 1600MCG/ML 250 ML IV SCH (14:02)
[2016-05-28] MEDS: SODIUM CHLORIDE 0.9% 1,000 ML IV SCH (14:45)
[2016-05-28] MEDS: SODIUM CHLORIDE 0.9% 500 ML IV SCH (14:56)
[2016-05-28 16:27] LABS: Magnesium 2.8 mg/dL (1.6-2.6); Potassium 4.6 mmol/L (3.5-5.1)
[2016-05-28] MEDS: Boost Glucose Control 8 Ounces PO SCH (18:16)
[2016-05-28] MEDS: PROPRANOLOL HCL 1 MG/ML VIAL IV PRN (19:07)
[2016-05-28] MEDS ORDERED: INSULIN DRIP 100 UNIT/100ML 100 ML IV SCH (19:36)
[2016-05-28] MEDS ORDERED: POTASSIUM CHL 20MEQ/100ML 100 ML IV PRN (19:45)
[2016-05-28] MEDS: ATORVASTATIN 20 MG TAB PO SCH (21:30)
[2016-05-29] VITALS (95 sets, daily range): BP systolic 28–162; BP diastolic 9–92
[2016-05-29] MEDS: HYDROcodone-ACET 5/325MG TAB PO PRN ×4 (02:12→17:48)
[2016-05-29] MEDS: METOCLOPRAMIDE HCL 5MG/ml INJ 2ml VIAL IV PRN ×3 (03:25→22:58)
[2016-05-29] MEDS: MILRINONE 20MG/100ML 100 ML IV SCH ×3 (03:31→22:55)
[2016-05-29 03:54] LABS: Basophils # (auto) 0 uL; Eosinophils # (auto) 0 uL; Eosinophils % (auto) 0.2 % (0.0-7.0); Hematocrit 34.2 % (41.0-53.0); Hemoglobin 11.2 g/dL (13.5-17.5); Lymphocytes # (auto) 1.1 uL; Lymphocytes % (auto) 6.2 % (10.0-50.0); Mean Corpuscular Hgb Conc. 32.8 g/dL (32.0-36.0); Mean Corpuscular Volume 88.3 fL (80.0-100.0); Mean Platelet Volume 10.6 fL (7.4-10.4); Monocytes # (auto) 1.1 uL; Monocytes % (auto) 6.4 % (0.0-12.0); Neutrophils # (auto) 15.1 uL; Neutrophils % (auto) 87.2 % (37.0-80.0); Platelet Count (auto) 213 10^3/uL (140-450); Red Cell Distribution Width 13.6 % (11.6-16.0); SUSPECT VIEW TRANSMISSION; White Blood Cell 17.3 10^3/uL (4.4-10.8)
[2016-05-29 04:20] LABS: Albumin 3.4 g/dL (3.4-5.0); BUN/Creatinine Ratio 26.9; Bilirubin, Total 1.1 mg/dL (0.2-1.0); Magnesium 2.8 mg/dL (1.6-2.6); Potassium 4.2 mmol/L (3.5-5.1); Total Protein 6.5 g/dL (6.4-8.2)
[2016-05-29] MEDS: DOPamine 1600MCG/ML 250 ML IV SCH (04:50)
[2016-05-29] MEDS: IPRATROPIUM BROM 0.5 MG/2.5ML INH SOL NEB SCH ×4 (06:15→22:14)
[2016-05-29] MEDS: ACETYLCYSTEINE 10 %(100MG/ML) SOL 4ML NEB SCH ×3 (06:16→22:14)
[2016-05-29] MEDS: glyBURIDE 2.5 MG TAB PO SCH (06:37)
[2016-05-29] MEDS: FUROSEMIDE 40 MG TAB PO SCH ×2 (06:38→17:49)
[2016-05-29] MEDS: Boost Glucose Control 8 Ounces PO SCH ×3 (08:52→19:00)
[2016-05-29] MEDS: FERROUS SULFATE 325 MG TAB PO SCH ×2 (08:52→17:48)
[2016-05-29] MEDS: PROPRANOLOL HCL 1 MG/ML VIAL IV PRN ×3 (09:29→23:39)
[2016-05-29] MEDS: NITROGLYCERIN 0.4MG/HR TOPICAL PATCH TD SCH (09:42)
[2016-05-29] MEDS: METOPROLOL TARTRATE 25 MG TAB PO SCH ×2 (09:42→22:58)
[2016-05-29] MEDS: AMIODARONE HCL 200 MG TAB PO SCH ×2 (09:43→22:57)
[2016-05-29] MEDS: PANTOPRAZOLE 40 MG TAB PO SCH (09:43)
[2016-05-29] MEDS: CLOPIDOGREL BISULFATE 75 MG TAB PO SCH (09:43)
[2016-05-29] MEDS: ASPirin 81 mg TAB PO SCH (09:43)
[2016-05-29] MEDS: DOCUSATE SOD 100 MG CAP PO SCH ×2 (09:43→22:57)
[2016-05-29] MEDS: POTASSIUM CHL 20 Meq TABLET PO SCH (09:43)
[2016-05-29] MEDS: ENOXAPARIN SOD 40 MG/0.4 ML SYRINGE SC SCH (10:07)
[2016-05-29] MEDS ORDERED: FUROSEMIDE 20 MG/2 ML VIAL IV ONE (10:45)
[2016-05-29] MEDS: CHLORHEXIDINE 0.12% ORAL rinse 473ML MT SCH ×2 (11:01→22:30)
[2016-05-29] MEDS: InsuLIN REG 1unit/0.01ml Soln (100units/ml) SC SCH ×3 (12:00→23:50)
[2016-05-29] MEDS: ACCU-CHEK COMFORT CURVE STRIP VI SCH ×3 (12:07→23:46)
[2016-05-29] MEDS: SODIUM CHLORIDE 0.9% 500 ML IV SCH (15:26)
[2016-05-29] MEDS ORDERED: ONDANSETRON HCL 4 MG/2 ML VIAL IV PRN (15:45)
[2016-05-29] MEDS: ACETAMINOPHEN 325 MG TAB PO PRN (21:47)
[2016-05-29] MEDS: SODIUM CHLORIDE 0.9% 1,000 ML IV SCH (22:50)
[2016-05-29] MEDS: ATORVASTATIN 20 MG TAB PO SCH (22:57)
[2016-05-30] VITALS (72 sets, daily range): BP systolic 91–197; BP diastolic 48–97
[2016-05-30] MEDS: HYDROcodone-ACET 5/325MG TAB PO PRN (00:08)
[2016-05-30] MEDS ORDERED: THROAT LOZENGES(CEPASTAT) MT PRN (01:00)
[2016-05-30 04:55] LABS: Basophils # (auto) 0 uL; Eosinophils # (auto) 0.2 uL; Hematocrit 33.6 % (41.0-53.0); Hemoglobin 11.2 g/dL (13.5-17.5); Lymphocytes # (auto) 1.1 uL; Lymphocytes % (auto) 7.6 % (10.0-50.0); Mean Corpuscular Hemoglobin 29.2 pg (28.0-32.0); Mean Corpuscular Hgb Conc. 33.3 g/dL (32.0-36.0); Mean Corpuscular Volume 87.7 fL (80.0-100.0); Monocytes # (auto) 1.3 uL; Monocytes % (auto) 9.1 % (0.0-12.0); Neutrophils # (auto) 12.1 uL; Neutrophils % (auto) 82.3 % (37.0-80.0); Platelet Count (auto) 253 10^3/uL (140-450); Red Cell Distribution Width 13.9 % (11.6-16.0); White Blood Cell 14.7 10^3/uL (4.4-10.8)
[2016-05-30 05:10] LABS: Albumin 3.1 g/dL (3.4-5.0); BUN/Creatinine Ratio 28.3; Bilirubin, Total 0.8 mg/dL (0.2-1.0); Calcium 7.9 mg/dL (8.5-10.1); Magnesium 2.6 mg/dL (1.6-2.6); Potassium 4.2 mmol/L (3.5-5.1); Total Protein 6.3 g/dL (6.4-8.2)
[2016-05-30] MEDS: ACCU-CHEK COMFORT CURVE STRIP VI SCH ×3 (06:00→18:23)
[2016-05-30] MEDS: InsuLIN REG 1unit/0.01ml Soln (100units/ml) SC SCH ×3 (06:00→18:22)
[2016-05-30] MEDS: ACETAMINOPHEN 325 MG TAB PO PRN ×2 (06:21→15:32)
[2016-05-30] MEDS: FUROSEMIDE 40 MG TAB PO SCH ×2 (06:24→18:04)
[2016-05-30] MEDS: glyBURIDE 2.5 MG TAB PO SCH (06:51)
[2016-05-30] MEDS: DOPamine 1600MCG/ML 250 ML IV SCH ×2 (07:32→10:52)
[2016-05-30] MEDS: FERROUS SULFATE 325 MG TAB PO SCH ×2 (08:06→18:04)
[2016-05-30] MEDS: Boost Glucose Control 8 Ounces PO SCH ×3 (08:07→18:04)
[2016-05-30] MEDS ORDERED: CALCIUM GLUC 4.65 MEQ/10ML 4.65 MEQ in SODIUM CHL 0.9% 50 ML IV ONE (09:00)
[2016-05-30] MEDS: POTASSIUM CHL 20 Meq TABLET PO SCH (09:49)
[2016-05-30] MEDS: DOCUSATE SOD 100 MG CAP PO SCH ×2 (09:49→21:21)
[2016-05-30] MEDS: CLOPIDOGREL BISULFATE 75 MG TAB PO SCH (09:51)
[2016-05-30] MEDS: NITROGLYCERIN 0.4MG/HR TOPICAL PATCH TD SCH (09:51)
[2016-05-30] MEDS: PANTOPRAZOLE 40 MG TAB PO SCH (09:52)
[2016-05-30] MEDS: ASPirin 81 mg TAB PO SCH (09:52)
[2016-05-30] MEDS: METOPROLOL TARTRATE 25 MG TAB PO SCH ×2 (09:52→21:22)
[2016-05-30] MEDS: ACETYLCYSTEINE 10 %(100MG/ML) SOL 4ML NEB SCH ×3 (09:52→22:15)
[2016-05-30] MEDS: IPRATROPIUM BROM 0.5 MG/2.5ML INH SOL NEB SCH ×2 (09:52→22:15)
[2016-05-30] MEDS: ENOXAPARIN SOD 40 MG/0.4 ML SYRINGE SC SCH (09:53)
[2016-05-30] MEDS: DIGOXIN 0.125 MG TAB PO SCH (09:53)
[2016-05-30] MEDS: AMIODARONE HCL 200 MG TAB PO SCH ×2 (09:53→21:23)
[2016-05-30] MEDS: CHLORHEXIDINE 0.12% ORAL rinse 473ML MT SCH ×2 (09:53→21:21)
[2016-05-30] MEDS: METOCLOPRAMIDE HCL 5MG/ml INJ 2ml VIAL IV PRN ×2 (09:57→21:22)
[2016-05-30] MEDS ORDERED: IPRATROPIUM BROM 0.5 MG/2.5ML INH SOL NEB SCH (12:00)
[2016-05-30] MEDS: SODIUM CHLORIDE 0.9% 500 ML IV SCH (13:45)
[2016-05-30] MEDS: SODIUM CHLORIDE 0.9% 1,000 ML IV SCH (13:45)
[2016-05-30] MEDS ORDERED: POTASSIUM CHL 20MEQ/100ML 100 ML IV ONE (19:00)
[2016-05-30] MEDS ORDERED: POTASSIUM CHL 10MEQ/50ML 50 ML IV ONE (19:00)
[2016-05-30] MEDS: ATORVASTATIN 20 MG TAB PO SCH (21:21)
[2016-05-30] MEDS: ALPRAZolam 0.5 MG TAB PO PRN (21:21)
[2016-05-30] MEDS: MILRINONE 20MG/100ML 100 ML IV SCH (21:24)
[2016-05-30] MEDS: INSULIN DETEMIR(LEVEMIR) 1unit/0.01ml Soln (100units/ml) SC SCH (22:17)
[2016-05-31] VITALS (57 sets, daily range): BP systolic 99–144; BP diastolic 54–90
[2016-05-31] MEDS: ACCU-CHEK COMFORT CURVE STRIP VI SCH ×4 (00:19→18:14)
[2016-05-31] MEDS: DOPamine 1600MCG/ML 250 ML IV SCH (02:05)
[2016-05-31 04:19] LABS: Basophils # (auto) 0 uL; Eosinophils # (auto) 0.1 uL; Hematocrit 36.5 % (41.0-53.0); Hemoglobin 11.9 g/dL (13.5-17.5); Lymphocytes % (auto) 6.9 % (10.0-50.0); Mean Corpuscular Hemoglobin 28.8 pg (28.0-32.0); Mean Corpuscular Hgb Conc. 32.6 g/dL (32.0-36.0); Mean Corpuscular Volume 88.3 fL (80.0-100.0); Mean Platelet Volume 9.5 fL (7.4-10.4); Monocytes # (auto) 1.2 uL; Monocytes % (auto) 8.3 % (0.0-12.0); Neutrophils # (auto) 12.5 uL; Neutrophils % (auto) 83.8 % (37.0-80.0); Platelet Count (auto) 288 10^3/uL (140-450); Red Cell Distribution Width 13.3 % (11.6-16.0); White Blood Cell 14.9 10^3/uL (4.4-10.8)
[2016-05-31 04:45] LABS: BUN/Creatinine Ratio 26.4; Bilirubin, Total 0.8 mg/dL (0.2-1.0); Calcium 8.3 mg/dL (8.5-10.1); Magnesium 2.3 mg/dL (1.6-2.6); Total Protein 6.5 g/dL (6.4-8.2)
[2016-05-31] MEDS: ACETYLCYSTEINE 10 %(100MG/ML) SOL 4ML NEB SCH ×3 (05:50→22:12)
[2016-05-31] MEDS: IPRATROPIUM BROM 0.5 MG/2.5ML INH SOL NEB SCH ×3 (05:50→22:12)
[2016-05-31] MEDS: FUROSEMIDE 40 MG TAB PO SCH ×2 (06:28→18:18)
[2016-05-31] MEDS: glyBURIDE 2.5 MG TAB PO SCH (06:29)
[2016-05-31] MEDS: InsuLIN REG 1unit/0.01ml Soln (100units/ml) SC SCH ×4 (06:30→18:16)
[2016-05-31] MEDS ORDERED: POTASSIUM CHL 10% (20 MEQ/15ML) ORAL SOLN PO PRN (07:45)
[2016-05-31] MEDS ORDERED: CALCIUM GLUC 4.65 MEQ/10ML 4.65 MEQ in SODIUM CHL 0.9% 50 ML IV ONE (07:45)
[2016-05-31] MEDS ORDERED: POTASSIUM CHL 20MEQ/100ML 100 ML IV PRN (07:45)
[2016-05-31] MEDS: FERROUS SULFATE 325 MG TAB PO SCH ×2 (08:31→18:18)
[2016-05-31] MEDS: CHLORHEXIDINE 0.12% ORAL rinse 473ML MT SCH ×2 (08:31→21:55)
[2016-05-31] MEDS: MILRINONE 20MG/100ML 100 ML IV SCH ×2 (08:31→18:18)
[2016-05-31] MEDS: Boost Glucose Control 8 Ounces PO SCH ×3 (08:31→18:18)
[2016-05-31] MEDS: HYDROcodone-ACET 5/325MG TAB PO PRN (09:15)
[2016-05-31] MEDS: METOCLOPRAMIDE HCL 5MG/ml INJ 2ml VIAL IV PRN (09:46)
[2016-05-31] MEDS: NITROGLYCERIN 0.4MG/HR TOPICAL PATCH TD SCH (09:46)
[2016-05-31] MEDS: ENOXAPARIN SOD 40 MG/0.4 ML SYRINGE SC SCH (09:46)
[2016-05-31] MEDS: PANTOPRAZOLE 40 MG TAB PO SCH (09:47)
[2016-05-31] MEDS: METOPROLOL TARTRATE 25 MG TAB PO SCH ×2 (09:47→21:54)
[2016-05-31] MEDS: ASPirin 81 mg TAB PO SCH (09:47)
[2016-05-31] MEDS: AMIODARONE HCL 200 MG TAB PO SCH ×2 (09:47→21:53)
[2016-05-31] MEDS: POTASSIUM CHL 20 Meq TABLET PO SCH (09:47)
[2016-05-31] MEDS: CLOPIDOGREL BISULFATE 75 MG TAB PO SCH (09:47)
[2016-05-31] MEDS: DOCUSATE SOD 100 MG CAP PO SCH ×2 (09:48→21:52)
[2016-05-31] MEDS: DIGOXIN 0.125 MG TAB PO SCH (09:48)
[2016-05-31] MEDS: INSULIN DETEMIR(LEVEMIR) 1unit/0.01ml Soln (100units/ml) SC SCH ×2 (10:20→21:56)
[2016-05-31] MEDS: SODIUM CHLORIDE 0.9% 1,000 ML IV SCH (14:48)
[2016-05-31] MEDS: SODIUM CHLORIDE 0.9% 500 ML IV SCH (16:36)
[2016-05-31] MEDS: ALPRAZolam 0.5 MG TAB PO PRN (21:52)
[2016-05-31] MEDS: ATORVASTATIN 20 MG TAB PO SCH (21:53)
[2016-06-01] VITALS (63 sets, daily range): BP systolic 101–154; BP diastolic 48–92
[2016-06-01] MEDS: HYDROcodone-ACET 5/325MG TAB PO PRN (01:46)
[2016-06-01] MEDS: MILRINONE 20MG/100ML 100 ML IV SCH ×2 (05:03→15:36)
[2016-06-01] MEDS: InsuLIN REG 1unit/0.01ml Soln (100units/ml) SC SCH ×5 (06:00→23:32)
[2016-06-01] MEDS: ACCU-CHEK COMFORT CURVE STRIP VI SCH ×5 (06:00→23:33)
[2016-06-01] MEDS: FUROSEMIDE 40 MG TAB PO SCH ×2 (06:56→18:02)
[2016-06-01] MEDS: ACETYLCYSTEINE 10 %(100MG/ML) SOL 4ML NEB SCH ×3 (07:26→22:15)
[2016-06-01] MEDS: IPRATROPIUM BROM 0.5 MG/2.5ML INH SOL NEB SCH ×3 (07:26→22:15)
[2016-06-01] MEDS: Boost Glucose Control 8 Ounces PO SCH ×3 (08:00→18:06)
[2016-06-01 08:23] LABS: Basophils # (auto) 0 uL; Eosinophils # (auto) 0.3 uL; Eosinophils % (auto) 1.7 % (0.0-7.0); Hematocrit 36.8 % (41.0-53.0); Lymphocytes # (auto) 1.6 uL; Lymphocytes % (auto) 10.1 % (10.0-50.0); Mean Corpuscular Hgb Conc. 32.6 g/dL (32.0-36.0); Mean Corpuscular Volume 88.8 fL (80.0-100.0); Mean Platelet Volume 9.4 fL (7.4-10.4); Monocytes # (auto) 1.3 uL; Monocytes % (auto) 8.2 % (0.0-12.0); Neutrophils # (auto) 12.8 uL; Platelet Count (auto) 349 10^3/uL (140-450); Red Cell Distribution Width 13.5 % (11.6-16.0)
[2016-06-01] MEDS: glyBURIDE 2.5 MG TAB PO SCH (08:37)
[2016-06-01 08:40] LABS: Albumin 3.1 g/dL (3.4-5.0); BUN/Creatinine Ratio 25.3; Bilirubin, Total 0.8 mg/dL (0.2-1.0); Calcium 8.3 mg/dL (8.5-10.1); Potassium 4.1 mmol/L (3.5-5.1); Total Protein 6.6 g/dL (6.4-8.2)
[2016-06-01] MEDS: FERROUS SULFATE 325 MG TAB PO SCH ×2 (08:44→18:02)
[2016-06-01] MEDS: ASPirin 81 mg TAB PO SCH (08:44)
[2016-06-01] MEDS: POTASSIUM CHL 20 Meq TABLET PO SCH (08:45)
[2016-06-01] MEDS: DOCUSATE SOD 100 MG CAP PO SCH ×2 (08:46→21:21)
[2016-06-01] MEDS: NITROGLYCERIN 0.4MG/HR TOPICAL PATCH TD SCH (08:50)
[2016-06-01] MEDS: AMIODARONE HCL 200 MG TAB PO SCH ×2 (10:00→21:22)
[2016-06-01] MEDS: INSULIN DETEMIR(LEVEMIR) 1unit/0.01ml Soln (100units/ml) SC SCH ×2 (10:00→21:28)
[2016-06-01] MEDS: CLOPIDOGREL BISULFATE 75 MG TAB PO SCH (10:02)
[2016-06-01] MEDS: DIGOXIN 0.125 MG TAB PO SCH (10:03)
[2016-06-01] MEDS: PANTOPRAZOLE 40 MG TAB PO SCH (10:04)
[2016-06-01] MEDS: CHLORHEXIDINE 0.12% ORAL rinse 473ML MT SCH ×2 (10:05→21:22)
[2016-06-01] MEDS: METOPROLOL TARTRATE 25 MG TAB PO SCH ×2 (10:05→21:21)
[2016-06-01] MEDS: ENOXAPARIN SOD 40 MG/0.4 ML SYRINGE SC SCH (10:06)
[2016-06-01] MEDS: SODIUM CHLORIDE 0.9% 1,000 ML IV SCH (14:48)
[2016-06-01] MEDS: SODIUM CHLORIDE 0.9% 500 ML IV SCH (14:48)
[2016-06-01] MEDS: ATORVASTATIN 20 MG TAB PO SCH (21:22)
[2016-06-01] MEDS: ALPRAZolam 0.5 MG TAB PO PRN (22:17)
[2016-06-02] VITALS (58 sets, daily range): BP systolic 100–148; BP diastolic 41–84
[2016-06-02 03:46] LABS: Basophils # (auto) 0 uL; Basophils % (auto) 0.1 % (0.0-2.0); Eosinophils # (auto) 0.2 uL; Eosinophils % (auto) 1.1 % (0.0-7.0); Hemoglobin 11.9 g/dL (13.5-17.5); Lymphocytes # (auto) 1.4 uL; Lymphocytes % (auto) 10.3 % (10.0-50.0); Mean Corpuscular Hemoglobin 28.4 pg (28.0-32.0); Mean Corpuscular Hgb Conc. 32.2 g/dL (32.0-36.0); Mean Corpuscular Volume 88.4 fL (80.0-100.0); Mean Platelet Volume 9.3 fL (7.4-10.4); Monocytes # (auto) 1.1 uL; Monocytes % (auto) 8.1 % (0.0-12.0); Neutrophils # (auto) 11.1 uL; Neutrophils % (auto) 80.4 % (37.0-80.0); Platelet Count (auto) 381 10^3/uL (140-450); Red Cell Distribution Width 13.9 % (11.6-16.0); White Blood Cell 13.8 10^3/uL (4.4-10.8)
[2016-06-02 04:11] LABS: Potassium 4.3 mmol/L (3.5-5.1)
[2016-06-02 04:16] LABS: Albumin 2.7 g/dL (3.4-5.0); BUN/Creatinine Ratio 21.8; Calcium 7.9 mg/dL (8.5-10.1)
[2016-06-02 04:19] LABS: Bilirubin, Total 0.7 mg/dL (0.2-1.0); Total Protein 6.4 g/dL (6.4-8.2)
[2016-06-02] MEDS: InsuLIN REG 1unit/0.01ml Soln (100units/ml) SC SCH ×3 (06:00→18:00)
[2016-06-02] MEDS: ACCU-CHEK COMFORT CURVE STRIP VI SCH ×3 (06:22→18:00)
[2016-06-02] MEDS: FUROSEMIDE 40 MG TAB PO SCH ×2 (06:23→18:00)
[2016-06-02] MEDS: glyBURIDE 2.5 MG TAB PO SCH (06:23)
[2016-06-02] MEDS: IPRATROPIUM BROM 0.5 MG/2.5ML INH SOL NEB SCH ×2 (06:50→14:14)
[2016-06-02] MEDS: ACETYLCYSTEINE 10 %(100MG/ML) SOL 4ML NEB SCH ×2 (06:50→14:14)
[2016-06-02] MEDS: MILRINONE 20MG/100ML 100 ML IV SCH (07:31)
[2016-06-02] MEDS: ALPRAZolam 0.5 MG TAB PO PRN (07:45)
[2016-06-02] MEDS: FERROUS SULFATE 325 MG TAB PO SCH ×2 (07:45→18:00)
[2016-06-02] MEDS: Boost Glucose Control 8 Ounces PO SCH ×3 (08:30→18:00)
[2016-06-02] MEDS: INSULIN DETEMIR(LEVEMIR) 1unit/0.01ml Soln (100units/ml) SC SCH (10:46)
[2016-06-02] MEDS: DOCUSATE SOD 100 MG CAP PO SCH (11:01)
[2016-06-02] MEDS: CHLORHEXIDINE 0.12% ORAL rinse 473ML MT SCH (11:01)
[2016-06-02] MEDS: PANTOPRAZOLE 40 MG TAB PO SCH (11:01)
[2016-06-02] MEDS: ASPirin 81 mg TAB PO SCH (11:01)
[2016-06-02] MEDS: CLOPIDOGREL BISULFATE 75 MG TAB PO SCH (11:02)
[2016-06-02] MEDS: POTASSIUM CHL 20 Meq TABLET PO SCH (11:02)
[2016-06-02] MEDS: AMIODARONE HCL 200 MG TAB PO SCH (11:02)
[2016-06-02] MEDS: DIGOXIN 0.125 MG TAB PO SCH (11:03)
[2016-06-02] MEDS: METOPROLOL TARTRATE 25 MG TAB PO SCH (11:03)
[2016-06-02] MEDS: ENOXAPARIN SOD 40 MG/0.4 ML SYRINGE SC SCH (11:04)
[2016-06-02] MEDS: NITROGLYCERIN 0.4MG/HR TOPICAL PATCH TD SCH (11:05)
[2016-06-02] MEDS: SODIUM CHLORIDE 0.9% 500 ML IV SCH (14:48)
[2016-06-02] MEDS: SODIUM CHLORIDE 0.9% 1,000 ML IV SCH (14:48)
[2016-06-02] MEDS ORDERED: LEVEMIR SC ×2 (14:51→14:52)
[2016-06-02] MEDS ORDERED: ALPR0.5T7 PO (14:55)
[2016-06-02] MEDS ORDERED: DIG0125T PO (14:57)
[2016-06-02] MEDS ORDERED: [UNRECOGNIZED DRUG - CODE] MT (15:00)
[2016-06-02] MEDS ORDERED: METO-159 PO (15:04)
[2016-06-02] MEDS ORDERED: CLOP75TA28 PO (15:05)
[2016-06-02] MEDS ORDERED: PANT40T PO (15:05)
[2016-06-02] MEDS ORDERED: FERR325T PO (15:06)
[2016-06-02] MEDS ORDERED: GLYB2.5T76 PO (15:33)
[2016-06-02] MEDS ORDERED: DOCU100T15 PO (15:34)
[2016-06-02] MEDS ORDERED: ATOR20TA PO (15:39)
[2016-06-02] MEDS ORDERED: AMIO100T3 PO (15:41)
[2016-06-02] MEDS ORDERED: FURO40TA4 PO (15:42)
== END 2016-06-02 19:45 | disposition home health service (06) | DRG 228 ==
LOC: ER 23:40 → CC 23:41 → ICU WEST 23:42
PROVIDERS: ADMIT Internal Medicine Cardiovascular Disease; ATTEND Internal Medicine Cardiovascular Disease
PROC: 4A023N7 Measurement of Cardiac Sampling and Pressure, Left Heart, Percutaneous Approach (ICD-10-PCS; 2016-05-21)
PROC: B2111ZZ Fluoroscopy of Multiple Coronary Arteries using Low Osmolar Contrast (ICD-10-PCS; 2016-05-21)
PROC: B2151ZZ Fluoroscopy of Left Heart using Low Osmolar Contrast (ICD-10-PCS; 2016-05-21)
PROC: 5A1221Z Performance of Cardiac Output, Continuous (ICD-10-PCS; 2016-05-22)
PROC: 5A1945Z Respiratory Ventilation, 24-96 Consecutive Hours (ICD-10-PCS; 2016-05-22)
PROC: 5A02210 Assistance with Cardiac Output using Balloon Pump, Continuous (ICD-10-PCS; principal; 2016-05-26)
PROC: 02100A9 Bypass Coronary Artery, One Artery from Left Internal Mammary with Autologous Arterial Tissue, Open Approach (ICD-10-PCS; 2016-05-26)
PROC: 021209W Bypass Coronary Artery, Three Arteries from Aorta with Autologous Venous Tissue, Open Approach (ICD-10-PCS; 2016-05-26)
PROC: B41C1ZZ Fluoroscopy of Pelvic Arteries using Low Osmolar Contrast (ICD-10-PCS; 2016-05-26)
PROC: 06BP4ZZ Excision of Right Saphenous Vein, Percutaneous Endoscopic Approach (ICD-10-PCS; 2016-05-26)
PROC: 30233N1 Transfusion of Nonautologous Red Blood Cells into Peripheral Vein, Percutaneous Approach (ICD-10-PCS; 2016-05-26)
PROC: 02C00ZZ Extirpation of Matter from Coronary Artery, One Artery, Open Approach (ICD-10-PCS; 2016-05-26)
DX: I21.09 ST elevation (STEMI) myocardial infarction involving other coronary artery of anterior wall (principal); N17.0 Acute kidney failure with tubular necrosis; I45.10 Unspecified right bundle-branch block; I10 Essential (primary) hypertension; E11.9 Type 2 diabetes mellitus without complications; E78.5 Hyperlipidemia, unspecified; I35.1 Nonrheumatic aortic (valve) insufficiency; I48.91 Unspecified atrial fibrillation; I25.10 Atherosclerotic heart disease of native coronary artery without angina pectoris; I25.2 Old myocardial infarction; Z95.1 Presence of aortocoronary bypass graft; Z82.49 Family history of ischemic heart disease and other diseases of the circulatory system
CPT/HCPCS: 36415; 36600; 71010; 71020; 80048; 80053; 80061; 81001; 82805; 82962; 83036; 83735; 83880; 84100; 84132; 84443; 84484; 85007; 85025; 85027; 85049; 85379; 85576; 85610; 85730; 86850; 86900; 86901; 86920; 87070; 87081; 87205; 93005; 93306; 93458; 93886; 93970; 94002; 94003; 94640; 94660; 94668; 99152; A4565; C1751; C1768; C9113; J0131; J0153; J0171; J0690; J1100; J1642; J1644; J1815; J2250; J2405; J2440; J2704; J3480; J3490; J7060

== ENCOUNTER → 2016-06-23 | Outpatient (CLI) | payer OTHER ==
[~2016-06-23] MED LIST: ALPR0.5T7 PO; AMIO100T3 PO; ATOR20TA PO; CLOP75TA28 PO; DIG0125T PO; DOCU100T15 PO; FERR325T PO; FURO40TA4 PO; GLYB2.5T76 PO; LEVEMIR SC; METO-159 PO; PANT40T PO; [UNRECOGNIZED DRUG - CODE] MT
[2016-06-23 13:24] LABS: Urine Bilirubin Negative (Negative); Urine Blood Negative /uL (Negative); Urine Color Yellow (Yellow); Urine Glucose Normal (Normal); Urine Ketone Negative (Negative); Urine Urobilinogen Normal (Negative)
[2016-06-23 13:36] LABS: Urine Nitrite POSITIVE (Negative)
[2016-06-23 13:39] LABS: Partial Thromboplastin Time 29.2 sec (22.64-33.71); Prothrombin Time 11.9 sec (9.37-12.3)
[2016-06-23 13:42] LABS: Albumin 3.4 g/dL (3.4-5.0); BUN/Creatinine Ratio 20.2; Bilirubin, Total 0.4 mg/dL (0.2-1.0); Potassium 4.7 mmol/L (3.5-5.1); Total Protein 8.1 g/dL (6.4-8.2)
[2016-06-23 13:45] LABS: INR 1.16 (0.9-1.15)
[2016-06-23 13:47] LABS: Basophils # (auto) 0 uL; Basophils % (auto) 0.4 % (0.0-2.0); Eosinophils # (auto) 0.2 uL; Eosinophils % (auto) 1.4 % (0.0-7.0); Hematocrit 43.5 % (41.0-53.0); Hemoglobin 13.7 g/dL (13.5-17.5); Lymphocytes # (auto) 1.4 uL; Lymphocytes % (auto) 11.9 % (10.0-50.0); Mean Corpuscular Hemoglobin 27.8 pg (28.0-32.0); Mean Corpuscular Hgb Conc. 31.5 g/dL (32.0-36.0); Mean Corpuscular Volume 88.3 fL (80.0-100.0); Monocytes # (auto) 0.9 uL; Monocytes % (auto) 7.5 % (0.0-12.0); Neutrophils % (auto) 78.8 % (37.0-80.0); Platelet Count (auto) 380 10^3/uL (140-450); Red Cell Distribution Width 14.3 % (11.6-16.0); White Blood Cell 11.5 10^3/uL (4.4-10.8)
== END | disposition home or self-care (01) ==
LOC: LAB 12:24
PROVIDERS: ATTEND Specialist
DX: Z01.812 Encounter for preprocedural laboratory examination (principal); H25.11 Age-related nuclear cataract, right eye; Z79.01 Long term (current) use of anticoagulants; D68.32 Hemorrhagic disorder due to extrinsic circulating anticoagulants
CPT/HCPCS: 36415; 80053; 81003; 85025; 85610; 85730

== ENCOUNTER → 2016-06-30 | Outpatient (CLI) | payer OTHER ==
[2016-06-30 16:31] LABS: Basophils # (auto) 0 uL; Basophils % (auto) 0.3 % (0.0-2.0); Eosinophils # (auto) 0 uL; Eosinophils % (auto) 0.3 % (0.0-7.0); Hematocrit 43.6 % (41.0-53.0); Hemoglobin 14.3 g/dL (13.5-17.5); Lymphocytes # (auto) 1.2 uL; Mean Corpuscular Hemoglobin 28.5 pg (28.0-32.0); Mean Corpuscular Hgb Conc. 32.8 g/dL (32.0-36.0); Monocytes # (auto) 0.8 uL; Monocytes % (auto) 5.8 % (0.0-12.0); Neutrophils # (auto) 11.5 uL; Neutrophils % (auto) 84.6 % (37.0-80.0); Platelet Count (auto) 329 10^3/uL (140-450); Red Cell Distribution Width 14.8 % (11.6-16.0); White Blood Cell 13.6 10^3/uL (4.4-10.8)
[2016-06-30 16:40] LABS: Urine Bilirubin Negative (Negative); Urine Blood Negative /uL (Negative); Urine Color Yellow (Yellow); Urine Glucose Normal (Normal); Urine Ketone Negative (Negative); Urine Nitrite Negative (Negative); Urine RBC 1 /hpf (0 - 3); Urine Squamous Epithelial Cell FEW /hpf (<5); Urine Urobilinogen Normal (Negative)
[2016-06-30 16:56] LABS: Albumin 3.6 g/dL (3.4-5.0); BUN/Creatinine Ratio 23.5; Bilirubin, Total 0.5 mg/dL (0.2-1.0); Calcium 9.3 mg/dL (8.5-10.1); Potassium 4.5 mmol/L (3.5-5.1); Total Protein 8.6 g/dL (6.4-8.2)
[2016-06-30 16:58] LABS: INR 1.15 (0.9-1.15); Prothrombin Time 11.8 sec (9.37-12.3)
== END | disposition home or self-care (01) ==
LOC: LAB 15:44
PROVIDERS: ATTEND Internal Medicine
DX: Z01.812 Encounter for preprocedural laboratory examination (principal); E11.9 Type 2 diabetes mellitus without complications
CPT/HCPCS: 36415; 80053; 81001; 82043; 83036; 84439; 84443; 85025; 85610; 85652; 85730

== ENCOUNTER → 2016-07-01 | Outpatient (CLI) | payer OTHER | END | disposition home or self-care (01) | LOC: LAB 09:38 | PROVIDERS: ATTEND Internal Medicine | DX: R35.0 Frequency of micturition (principal); D72.829 Elevated white blood cell count, unspecified | CPT/HCPCS: 87086 ==

== ENCOUNTER → 2016-07-21 | Outpatient (CLI) | payer OTHER | END | disposition home or self-care (01) | LOC: Rad HDHVI 12:39 | PROVIDERS: ATTEND Internal Medicine Cardiovascular Disease | DX: Z95.5 Presence of coronary angioplasty implant and graft (principal) | CPT/HCPCS: 93306 ==

== ENCOUNTER → 2016-08-26 | Outpatient (CLI) | payer OTHER ==
[2016-08-26 13:19] LABS: Urine Bilirubin Negative (Negative); Urine Blood Negative /uL (Negative); Urine Color Yellow (Yellow); Urine Glucose Normal (Normal); Urine Ketone Negative (Negative); Urine Nitrite Negative (Negative); Urine Urobilinogen Normal (Negative)
[2016-08-26 13:29] LABS: INR 1.1 (0.9-1.15); Partial Thromboplastin Time 28.9 sec (22.64-33.71); Prothrombin Time 11.9 sec (9.37-12.3)
[2016-08-26 13:40] LABS: Basophils # (auto) 0 uL; Basophils % (auto) 0.4 % (0.0-2.0); Eosinophils # (auto) 0.1 uL; Eosinophils % (auto) 1.3 % (0.0-7.0); Hematocrit 43.6 % (41.0-53.0); Hemoglobin 14.2 g/dL (13.5-17.5); Lymphocytes # (auto) 1.3 uL; Lymphocytes % (auto) 13.1 % (10.0-50.0); Mean Corpuscular Hemoglobin 28.5 pg (28.0-32.0); Mean Corpuscular Hgb Conc. 32.5 g/dL (32.0-36.0); Mean Corpuscular Volume 87.7 fL (80.0-100.0); Mean Platelet Volume 10.7 fL (7.4-10.4); Monocytes # (auto) 0.8 uL; Monocytes % (auto) 8.2 % (0.0-12.0); Neutrophils # (auto) 7.4 uL; Platelet Count (auto) 255 10^3/uL (140-450); Red Cell Distribution Width 15.9 % (11.6-16.0); White Blood Cell 9.7 10^3/uL (4.4-10.8)
[2016-08-26 14:07] LABS: Albumin 3.5 g/dL (3.4-5.0); BUN/Creatinine Ratio 24.3; Bilirubin, Total 0.4 mg/dL (0.2-1.0); Calcium 9.8 mg/dL (8.5-10.1); Potassium 4.6 mmol/L (3.5-5.1); Total Protein 7.7 g/dL (6.4-8.2)
== END | disposition home or self-care (01) ==
LOC: LAB 12:37
PROVIDERS: ATTEND Specialist
DX: H25.12 Age-related nuclear cataract, left eye (principal); Z79.01 Long term (current) use of anticoagulants; D68.8 Other specified coagulation defects
CPT/HCPCS: 36415; 80053; 81003; 85025; 85610; 85730

== ENCOUNTER → 2017-04-13 | Outpatient (CLI) | payer OTHER ==
[~2017-04-13] MED LIST changes: -GLYB2.5T76 PO; +GLYB2.5T8 PO
[2017-04-13 09:46] LABS: Basophils # (auto) 0 uL; Basophils % (auto) 0.4 % (0.0-2.0); Eosinophils # (auto) 0.1 uL; Eosinophils % (auto) 1.2 % (0.0-7.0); Hematocrit 44.2 % (41.0-53.0); Hemoglobin 15.1 g/dL (13.5-17.5); Lymphocytes % (auto) 20.2 % (10.0-50.0); Mean Corpuscular Hemoglobin 30.8 pg (28.0-32.0); Mean Corpuscular Hgb Conc. 34.2 g/dL (32.0-36.0); Mean Platelet Volume 9.6 fL (6.9-10.8); Monocytes # (auto) 0.8 uL; Monocytes % (auto) 8.2 % (0.0-12.0); Neutrophils # (auto) 6.8 uL; Platelet Count (auto) 219 10^3/uL (140-450); Red Cell Distribution Width 12.6 % (11.8-14.3); White Blood Cell 9.7 10^3/uL (4.4-10.8)
[2017-04-13 10:18] LABS: Albumin 3.8 g/dL (3.4-5.0); BUN/Creatinine Ratio 17.1; Bilirubin, Total 0.5 mg/dL (0.2-1.0); Magnesium 1.9 mg/dL (1.6-2.6); Potassium 3.9 mmol/L (3.5-5.1); Total Protein 7.8 g/dL (6.4-8.2)
== END | disposition home or self-care (01) ==
LOC: LAB 09:01
PROVIDERS: ATTEND Internal Medicine
DX: I10 Essential (primary) hypertension (principal); E11.9 Type 2 diabetes mellitus without complications
CPT/HCPCS: 36415; 80053; 80061; 82607; 83735; 84439; 84443; 84550; 85025

== ENCOUNTER → 2017-07-02 | Outpatient (CLI) | payer OTHER ==
[~2017-07-02] MED LIST changes: +FERR-20 PO; -FERR325T PO
== END | disposition home or self-care (01) ==
LOC: Rad HDHVI 12:39
PROVIDERS: ATTEND Internal Medicine Cardiovascular Disease
DX: I70.0 Atherosclerosis of aorta (principal); E11.65 Type 2 diabetes mellitus with hyperglycemia; I25.5 Ischemic cardiomyopathy
CPT/HCPCS: 93306

== ENCOUNTER → 2017-09-23 | Outpatient (CLI) | payer OTHER ==
[2017-09-23 12:41] LABS: Free T4 (Free Thyroxine) 1.28 ng/dL (0.89-1.76)
[2017-09-23 12:42] LABS: Prostate Specific Antigen 0.33 ng/mL (0.0-4.0)
== END | disposition home or self-care (01) ==
LOC: LAB 11:42
PROVIDERS: ATTEND Internal Medicine
DX: E11.9 Type 2 diabetes mellitus without complications (principal); E03.9 Hypothyroidism, unspecified; E55.9 Vitamin D deficiency, unspecified; I10 Essential (primary) hypertension; Z79.01 Long term (current) use of anticoagulants
CPT/HCPCS: 36415; 82306; 83036; 84153; 84439; 84443

== ENCOUNTER 2017-12-09 13:58 | Emergency (ER) | payer OTHER ==
[~2017-12-09] VITALS: Ht 170.2 cm; Wt 72.6 kg
[2017-12-09 15:39] VITALS: BP 152/87
[2017-12-09] MEDS ORDERED: KETOROLAC TROMETH 60MG/2ML VIAL IM ONE (17:15)
[2017-12-09] MEDS ORDERED: HYDROcodone-ACET 10/325MG TAB PO ONE (17:15)
== END 2017-12-09 17:53 | disposition home or self-care (01) ==
LOC: EDBD 13:58 → ER 13:58
DX: M54.41 Lumbago with sciatica, right side (principal); M51.36 Other intervertebral disc degeneration, lumbar region; E11.9 Type 2 diabetes mellitus without complications; M25.551 Pain in right hip; I10 Essential (primary) hypertension; I25.2 Old myocardial infarction; Z95.1 Presence of aortocoronary bypass graft; Z79.4 Long term (current) use of insulin
CPT/HCPCS: 72100; 73502; 96372; 99284; J1885

== ENCOUNTER → 2018-02-15 | Outpatient (CLI) | payer MEDICARE, OTHER ==
[2018-02-15 12:59] LABS: Urine WBC None Seen /hpf (0 - 3)
[2018-02-15 13:02] LABS: Basophils # (auto) 0.1 uL; Basophils % (auto) 0.6 % (0.0-2.0); Eosinophils # (auto) 0.2 uL; Eosinophils % (auto) 1.9 % (0.0-7.0); Hematocrit 47.1 % (41.0-53.0); Hemoglobin 16.3 g/dL (13.5-17.5); Lymphocytes # (auto) 1.6 uL; Lymphocytes % (auto) 18.3 % (10.0-50.0); Mean Corpuscular Hgb Conc. 34.6 g/dL (32.0-36.0); Mean Corpuscular Volume 89.4 fL (80.0-100.0); Monocytes # (auto) 0.8 uL; Neutrophils # (auto) 6.1 uL; Neutrophils % (auto) 70.2 % (37.0-80.0); Platelet Count (auto) 247 10^3/uL (140-450); Red Blood Cells 5.27 10^6/uL (4.5-5.90); Red Cell Distribution Width 12.9 % (11.8-14.3); White Blood Cell 8.7 10^3/uL (4.4-10.8)
[2018-02-15 13:09] LABS: Urine Bacteria NONE SEEN /hpf (None Seen); Urine Blood Negative /uL (Negative); Urine Hyaline Cast FEW /lpf (0 - 2); Urine Specific Gravity 1.007 (1.001-1.035)
[2018-02-15 13:26] LABS: Albumin 3.9 g/dL (3.4-5.0); BUN/Creatinine Ratio 17.8; Calcium 9.4 mg/dL (8.5-10.1); Potassium 4.6 mmol/L (3.5-5.1)
[2018-02-15 13:28] LABS: Bilirubin, Total 0.6 mg/dL (0.2-1.0)
[2018-02-15 13:34] LABS: Free T4 (Free Thyroxine) 1.36 ng/dL (0.89-1.76)
== END | disposition home or self-care (01) ==
LOC: LAB 12:14
PROVIDERS: ATTEND Internal Medicine
DX: I10 Essential (primary) hypertension (principal); E11.9 Type 2 diabetes mellitus without complications; R35.1 Nocturia
CPT/HCPCS: 36415; 80053; 80061; 81001; 82043; 82607; 83036; 84439; 84443; 85025; 85652

== ENCOUNTER → 2018-03-01 | Outpatient (CLI) | payer MEDICARE, OTHER | END | disposition home or self-care (01) | LOC: LAB 08:07 | DX: I10 Essential (primary) hypertension (principal); E11.9 Type 2 diabetes mellitus without complications; R35.1 Nocturia | CPT/HCPCS: 82270 ==

== ENCOUNTER → 2018-06-22 | Outpatient (CLI) | payer MEDICARE, OTHER | END | disposition home or self-care (01) | LOC: Rad HDHVI 15:30 | PROVIDERS: ATTEND Internal Medicine Cardiovascular Disease | DX: I34.0 Nonrheumatic mitral (valve) insufficiency (principal); I11.0 Hypertensive heart disease with heart failure; I50.23 Acute on chronic systolic (congestive) heart failure; I25.5 Ischemic cardiomyopathy | CPT/HCPCS: 93306 ==

== ENCOUNTER → 2018-07-07 | Outpatient (CLI) | payer MEDICARE, OTHER ==
[~2018-07-07] VITALS: Ht 167.6 cm; Wt 90.7 kg
[~2018-07-07] MED LIST changes: +ADENOSINE 76 MG in GIVE UN-DILUTED 0 ML IV ONE; +ADENOSINE 90 MG/30 ML INJ IV ONE
== END | disposition home or self-care (01) ==
LOC: Rad HDHVI 07:59
PROVIDERS: ATTEND Internal Medicine Cardiovascular Disease
DX: E11.65 Type 2 diabetes mellitus with hyperglycemia (principal); E11.40 Type 2 diabetes mellitus with diabetic neuropathy, unspecified; E11.21 Type 2 diabetes mellitus with diabetic nephropathy; I11.0 Hypertensive heart disease with heart failure; I50.23 Acute on chronic systolic (congestive) heart failure; I25.5 Ischemic cardiomyopathy
CPT/HCPCS: 78452; 93005; 96374; 96375; A9500; J0153

== ENCOUNTER → 2018-08-15 | Outpatient (CLI) | payer MEDICARE, OTHER ==
[~2018-08-15] MED LIST changes: -ADENOSINE 76 MG in GIVE UN-DILUTED 0 ML IV ONE; -ADENOSINE 90 MG/30 ML INJ IV ONE
== END | disposition home or self-care (01) ==
LOC: LAB 13:46
PROVIDERS: ATTEND Internal Medicine
DX: E55.9 Vitamin D deficiency, unspecified (principal); E11.9 Type 2 diabetes mellitus without complications
CPT/HCPCS: 36415; 82306; 83036

== ENCOUNTER → 2019-06-14 | Outpatient (CLI) | payer MEDICARE, OTHER | END | disposition home or self-care (01) | LOC: Rad HDHVI 07:46 | PROVIDERS: ATTEND Internal Medicine Cardiovascular Disease | DX: I08.0 Rheumatic disorders of both mitral and aortic valves (principal) | CPT/HCPCS: 93306 ==

== ENCOUNTER → 2019-06-15 | Outpatient (CLI) | payer MEDICARE, OTHER ==
[~2019-06-15] VITALS: Ht 167.6 cm; Wt 90.7 kg
[~2019-06-15] MED LIST changes: +ADENOSINE 76 MG in GIVE UN-DILUTED 0 ML IV ONE; +ADENOSINE 90 MG/30 ML INJ IV ONE
[2019-06-15 11:58] LABS: Urine Blood TRACE /uL (Negative)
[2019-06-15 12:00] LABS: Basophils # (auto) 0 uL; Basophils % (auto) 0.5 % (0.0-2.0); Eosinophils # (auto) 0.1 uL; Eosinophils % (auto) 1.6 % (0.0-7.0); Hematocrit 44.5 % (41.0-53.0); Hemoglobin 15.1 g/dL (13.5-17.5); Lymphocytes # (auto) 1.5 uL; Lymphocytes % (auto) 21.8 % (10.0-50.0); Mean Corpuscular Hgb Conc. 33.9 g/dL (32.0-36.0); Mean Corpuscular Volume 88.5 fL (80.0-100.0); Monocytes # (auto) 0.7 uL; Monocytes % (auto) 10.4 % (0.0-12.0); Neutrophils # (auto) 4.5 uL; Neutrophils % (auto) 65.7 % (37.0-80.0); Nucleated Red Blood Cells % 0.1 %; Platelet Count (auto) 215 10^3/uL (140-450); Red Blood Cells 5.04 10^6/uL (4.5-5.90); Red Cell Distribution Width 14.3 % (11.8-14.3); White Blood Cell 6.8 10^3/uL (4.4-10.8)
[2019-06-15 12:13] LABS: Potassium 4.1 mmol/L (3.5-5.1)
[2019-06-15 12:23] LABS: Albumin 3.4 g/dL (3.4-5.0); Bilirubin, Total 0.3 mg/dL (0.2-1.0); Calcium 9.2 mg/dL (8.5-10.1); Total Protein 7.5 g/dL (6.4-8.2)
[2019-06-15 12:31] LABS: Free T4 (Free Thyroxine) 1.32 ng/dL (0.89-1.76); Prostate Specific Antigen 0.42 ng/mL (0.0-4.0)
== END | disposition home or self-care (01) ==
LOC: Rad HDHVI 07:58
PROVIDERS: ATTEND Internal Medicine Cardiovascular Disease
DX: I13.0 Hypertensive heart and chronic kidney disease with heart failure and stage 1 through stage 4 chronic kidney disease, or unspecified chronic kidney disease (principal); E11.22 Type 2 diabetes mellitus with diabetic chronic kidney disease; N18.2 Chronic kidney disease, stage 2 (mild); I50.43 Acute on chronic combined systolic (congestive) and diastolic (congestive) heart failure; E78.5 Hyperlipidemia, unspecified; E03.9 Hypothyroidism, unspecified; I25.5 Ischemic cardiomyopathy; I25.2 Old myocardial infarction; K90.9 Intestinal malabsorption, unspecified; C61 Malignant neoplasm of prostate; N39.0 Urinary tract infection, site not specified; D51.9 Vitamin B12 deficiency anemia, unspecified; Z79.899 Other long term (current) drug therapy; Z95.1 Presence of aortocoronary bypass graft
CPT/HCPCS: 36415; 78452; 80053; 80061; 81003; 82306; 82607; 83036; 84153; 84403; 84439; 84443; 85025; 93005; 96374; 96375; A9500; J0153

== ENCOUNTER → 2019-07-04 | Outpatient (CLI) | payer MEDICARE, OTHER ==
[~2019-07-04] MED LIST changes: -ADENOSINE 76 MG in GIVE UN-DILUTED 0 ML IV ONE; -ADENOSINE 90 MG/30 ML INJ IV ONE
== END | disposition home or self-care (01) ==
LOC: LAB 11:56
PROVIDERS: ATTEND Internal Medicine
DX: E11.65 Type 2 diabetes mellitus with hyperglycemia (principal)
CPT/HCPCS: 36415; 83036

== ENCOUNTER → 2019-07-17 | Outpatient (CLI) | payer MEDICARE, OTHER ==
[2019-07-17 10:30] VITALS: BP 145/55
[2019-07-17 11:05] VITALS: BP 157/49
[2019-07-17 12:02] LABS: Basophils # (auto) 0 10 ^3/uL (0-0.2); Basophils % (auto) 0.5 % (0.0-2.0); Eosinophils # (auto) 0.1 10 ^3/uL (0-0.8); Eosinophils % (auto) 1.5 % (0.0-7.0); Hematocrit 44.9 % (41.0-53.0); Hemoglobin 15.2 g/dL (13.5-17.5); Lymphocytes # (auto) 1.5 10 ^3/uL (0.4-5.4); Lymphocytes % (auto) 16.4 % (10.0-50.0); Mean Corpuscular Hemoglobin 30.2 pg (28.0-32.0); Mean Corpuscular Hgb Conc. 33.8 g/dL (32.0-36.0); Mean Corpuscular Volume 89.4 fL (80.0-100.0); Monocytes # (auto) 0.6 10 ^3/uL (0-1.3); Neutrophils # (auto) 6.9 10 ^3/uL (1.6-8.6); Neutrophils % (auto) 74.6 % (37.0-80.0); Platelet Count (auto) 217 10^3/uL (140-450); Red Blood Cells 5.02 10^6/uL (4.5-5.90); White Blood Cell 9.2 10^3/uL (4.4-10.8)
[2019-07-17 12:12] LABS: Calcium 9.6 mg/dL (8.5-10.1); Potassium 4.1 mmol/L (3.5-5.1)
[2019-07-17 12:15] LABS: BUN/Creatinine Ratio 20.6
[2019-07-17 12:34] LABS: Partial Thromboplastin Time 25.9 sec (23.64-32.05)
== END | disposition home or self-care (01) ==
LOC: Rad HDHVI 09:55
PROVIDERS: ATTEND Internal Medicine Cardiovascular Disease
DX: Z01.812 Encounter for preprocedural laboratory examination (principal); E11.9 Type 2 diabetes mellitus without complications; I11.0 Hypertensive heart disease with heart failure; I50.84 End stage heart failure; I25.5 Ischemic cardiomyopathy
CPT/HCPCS: 36415; 71046; 80048; 85025; 85610; 85730; 93005; G0463

== ENCOUNTER → 2020-01-01 | Outpatient (CLI) | payer MEDICARE, OTHER | END | disposition home or self-care (01) | LOC: LAB 12:53 | PROVIDERS: ATTEND Internal Medicine | DX: E11.65 Type 2 diabetes mellitus with hyperglycemia (principal); I10 Essential (primary) hypertension | CPT/HCPCS: 36415; 83036; 84132 ==

== ENCOUNTER → 2020-08-01 | Outpatient (CLI) | payer MEDICARE, OTHER ==
[2020-08-01 11:56] LABS: Urine Bacteria NONE SEEN /hpf (None Seen); Urine Blood 1+ /uL (Negative); Urine Specific Gravity 1.019 (1.001-1.035); Urine WBC 1 /hpf (0 - 3)
[2020-08-01 13:10] LABS: Albumin 3.5 g/dL (3.4-5.0); Calcium 10.1 mg/dL (8.5-10.1); Potassium 4.9 mmol/L (3.5-5.1)
[2020-08-01 13:25] LABS: BUN/Creatinine Ratio 18.4; Bilirubin, Total 0.4 mg/dL (0.2-1.0); Total Protein 7.4 g/dL (6.4-8.2)
== END | disposition home or self-care (01) ==
LOC: LAB 11:13
PROVIDERS: ATTEND Internal Medicine
DX: E11.21 Type 2 diabetes mellitus with diabetic nephropathy (principal)
CPT/HCPCS: 36415; 80053; 81001; 82043; 83036

== ENCOUNTER → 2020-08-21 | Outpatient (CLI) | payer MEDICARE, OTHER | END | disposition home or self-care (01) | LOC: Rad HDHVI 10:31 | PROVIDERS: ATTEND Internal Medicine Cardiovascular Disease | DX: R00.2 Palpitations (principal); R07.89 Other chest pain | CPT/HCPCS: 93306 ==

== ENCOUNTER → 2020-09-02 | Outpatient (CLI) | payer MEDICARE, OTHER ==
[~2020-09-02] VITALS: Ht 170.2 cm; Wt 96.6 kg
[~2020-09-02] MED LIST changes: +ADENOSINE 81 MG in GIVE UN-DILUTED 0 ML IV ONE; +ADENOSINE 90 MG/30 ML INJ IV ONE
== END | disposition home or self-care (01) ==
LOC: Rad HDHVI 13:03
PROVIDERS: ATTEND Internal Medicine Cardiovascular Disease
DX: I25.10 Atherosclerotic heart disease of native coronary artery without angina pectoris (principal); I10 Essential (primary) hypertension; E78.5 Hyperlipidemia, unspecified; E11.9 Type 2 diabetes mellitus without complications; I25.2 Old myocardial infarction; Z82.49 Family history of ischemic heart disease and other diseases of the circulatory system; Z95.1 Presence of aortocoronary bypass graft
CPT/HCPCS: 78452; 93005; 96374; 96375; A9500; J0153

== ENCOUNTER → 2021-07-08 | Outpatient (CLI) | payer MEDICARE, OTHER ==
[~2021-07-08] MED LIST changes: -ADENOSINE 81 MG in GIVE UN-DILUTED 0 ML IV ONE; -ADENOSINE 90 MG/30 ML INJ IV ONE
== END | disposition home or self-care (01) ==
LOC: Rad HDHVI 13:33
PROVIDERS: ATTEND Internal Medicine Cardiovascular Disease
DX: I08.0 Rheumatic disorders of both mitral and aortic valves (principal)
CPT/HCPCS: 93306

== ENCOUNTER → 2021-09-30 | Outpatient (CLI) | payer MEDICARE, OTHER ==
[2021-09-30 08:13] VITALS: BP 192/45
[2021-09-30 08:36] VITALS: BP 192/42
[2021-09-30 12:37] LABS: Basophils # (auto) 0.2 10 ^3/uL (0-0.2); Eosinophils # (auto) 0.2 10 ^3/uL (0-0.8); Eosinophils % (auto) 2.5 % (0.0-7.0); Hematocrit 45.8 % (41.0-53.0); Hemoglobin 15.5 g/dL (13.5-17.5); Lymphocytes % (auto) 20.6 % (10.0-50.0); Mean Corpuscular Hemoglobin 29.1 pg (28.0-32.0); Mean Corpuscular Hgb Conc. 33.8 g/dL (32.0-36.0); Monocytes # (auto) 0.7 10 ^3/uL (0-1.3); Monocytes % (auto) 7.5 % (0.0-12.0); Neutrophils # (auto) 6.7 10 ^3/uL (1.6-8.6); Neutrophils % (auto) 67.4 % (37.0-80.0); Nucleated Red Blood Cells % 0.1 %; Red Blood Cells 5.33 10^6/uL (4.5-5.90); White Blood Cell 9.9 10^3/uL (4.4-10.8)
[2021-09-30 12:51] LABS: BUN/Creatinine Ratio 12.5; Calcium 9.4 mg/dL (8.5-10.1)
[2021-09-30 12:54] LABS: INR 1.05 (0.9-1.15); Partial Thromboplastin Time 30.6 sec (23.6-33.0)
== END | disposition home or self-care (01) ==
LOC: Rad HDHVI 07:55
PROVIDERS: ATTEND Internal Medicine Cardiovascular Disease
DX: M47.814 Spondylosis without myelopathy or radiculopathy, thoracic region (principal); M40.294 Other kyphosis, thoracic region; Z01.812 Encounter for preprocedural laboratory examination
CPT/HCPCS: 36415; 71046; 80048; 85025; 85610; 85730; 93005; G0463

== ENCOUNTER → 2021-11-14 | Outpatient (CLI) | payer MEDICARE, OTHER ==
[2021-11-15 08:07] LABS: Immunoglobulin G, Serum 978 mg/dL (603-1613)
== END | disposition home or self-care (01) ==
LOC: LAB 12:17
PROVIDERS: ATTEND Internal Medicine
DX: I25.10 Atherosclerotic heart disease of native coronary artery without angina pectoris (principal); E83.52 Hypercalcemia
CPT/HCPCS: 36415; 82310; 82784; 83970; 84155; 84165; 84439; 84443; 86334

== ENCOUNTER → 2022-04-10 | Outpatient (CLI) | payer MEDICARE, OTHER ==
[2022-04-10 12:42] LABS: Basophils # (auto) 0 10 ^3/uL (0-0.2); Basophils % (auto) 0.3 % (0.0-2.0); Eosinophils # (auto) 0.1 10 ^3/uL (0-0.8); Eosinophils % (auto) 0.9 % (0.0-7.0); Hematocrit 42.8 % (41.0-53.0); Hemoglobin 14.4 g/dL (13.5-17.5); Lymphocytes # (auto) 1.8 10 ^3/uL (0.4-5.4); Lymphocytes % (auto) 19.9 % (10.0-50.0); Mean Corpuscular Hemoglobin 29.6 pg (28.0-32.0); Mean Corpuscular Hgb Conc. 33.7 g/dL (32.0-36.0); Mean Corpuscular Volume 87.8 fL (80.0-100.0); Monocytes # (auto) 0.7 10 ^3/uL (0-1.3); Monocytes % (auto) 8.3 % (0.0-12.0); Neutrophils # (auto) 6.3 10 ^3/uL (1.6-8.6); Neutrophils % (auto) 70.6 % (37.0-80.0); Red Blood Cells 4.88 10^6/uL (4.5-5.90); White Blood Cell 8.9 10^3/uL (4.4-10.8)
[2022-04-10 13:11] LABS: Albumin 3.4 g/dL (3.4-5.0); Calcium 9.8 mg/dL (8.5-10.1); Potassium 3.9 mmol/L (3.5-5.1)
[2022-04-10 13:16] LABS: BUN/Creatinine Ratio 13.5; Bilirubin, Total 0.4 mg/dL (0.2-1.0); Phosphorus 2.2 mg/dL (2.5-4.90); Total Protein 7.1 g/dL (6.4-8.2)
[2022-04-10 13:53] LABS: Free T4 (Free Thyroxine) 1.3 ng/dL (0.89-1.76)
[2022-04-10 13:54] LABS: Prostate Specific Antigen 0.53 ng/mL (0.0-4.0)
[2022-04-10 14:43] LABS: Urine Bacteria NONE SEEN /hpf (None Seen); Urine Blood 1+ /uL (Negative); Urine Specific Gravity 1.015 (1.001-1.035); Urine WBC <1 /hpf (0 - 3)
== END | disposition home or self-care (01) ==
LOC: LAB 12:21
PROVIDERS: ATTEND Internal Medicine
DX: I25.10 Atherosclerotic heart disease of native coronary artery without angina pectoris (principal); I10 Essential (primary) hypertension; E11.9 Type 2 diabetes mellitus without complications
CPT/HCPCS: 36415; 80053; 80061; 80069; 81001; 82043; 82607; 84153; 84439; 84443; 85025; 85652

== ENCOUNTER → 2022-05-18 | Outpatient (CLI) | payer MEDICARE, OTHER | END | disposition home or self-care (01) | LOC: Rad HDHVI 13:39 | PROVIDERS: ATTEND Internal Medicine Cardiovascular Disease | DX: I08.3 Combined rheumatic disorders of mitral, aortic and tricuspid valves (principal); I10 Essential (primary) hypertension; R06.02 Shortness of breath | CPT/HCPCS: 93306 ==

== ENCOUNTER → 2022-06-09 | Outpatient (CLI) | payer MEDICARE, OTHER ==
[~2022-06-09] VITALS: Ht 167.6 cm; Wt 90.7 kg
[~2022-06-09] MED LIST changes: +ADENOSINE 76 MG in GIVE UN-DILUTED 0 ML IV ONE; +ADENOSINE 90 MG/30 ML INJ IV ONE
== END | disposition home or self-care (01) ==
LOC: Rad HDHVI 08:19
PROVIDERS: ATTEND Internal Medicine Cardiovascular Disease
DX: I25.10 Atherosclerotic heart disease of native coronary artery without angina pectoris (principal); I11.0 Hypertensive heart disease with heart failure; I50.33 Acute on chronic diastolic (congestive) heart failure; E78.5 Hyperlipidemia, unspecified; I25.5 Ischemic cardiomyopathy; R60.9 Edema, unspecified; Z95.1 Presence of aortocoronary bypass graft; Z79.84 Long term (current) use of oral hypoglycemic drugs; Z79.899 Other long term (current) drug therapy; Z82.49 Family history of ischemic heart disease and other diseases of the circulatory system
CPT/HCPCS: 78452; 93005; 96374; 96375; A9500; J0153

== ENCOUNTER → 2022-06-24 | Outpatient (CLI) | payer MEDICARE, OTHER ==
[~2022-06-24] MED LIST changes: -ADENOSINE 76 MG in GIVE UN-DILUTED 0 ML IV ONE; -ADENOSINE 90 MG/30 ML INJ IV ONE
== END | disposition home or self-care (01) ==
LOC: Rad HDHVI 13:39
PROVIDERS: ATTEND Internal Medicine Cardiovascular Disease
DX: I70.201 Unspecified atherosclerosis of native arteries of extremities, right leg (principal); E78.5 Hyperlipidemia, unspecified
CPT/HCPCS: 93926

== ENCOUNTER → 2023-10-22 | Outpatient (CLI) | payer MEDICARE, OTHER ==
[~2023-10-22] MED LIST changes: -FERR-20 PO; +FERR325T24 PO
[2023-10-22 10:51] LABS: Urine Blood 2+ /uL (Negative); Urine Clarity Clear (Clear); Urine Color Yellow (Yellow); Urine Protein, UAD 3+ (Negative); Urine Specific Gravity 1.026 (1.001-1.035); Urine Urobilinogen Normal (Negative)
[2023-10-22 10:54] LABS: Basophils # (auto) 0.1 10 ^3/uL (0-0.2); Basophils % (auto) 0.5 % (0.0-2.0); Eosinophils # (auto) 0.1 10 ^3/uL (0-0.8); Eosinophils % (auto) 1.4 % (0.0-7.0); Hematocrit 43.8 % (41.0-53.0); Hemoglobin 15.1 g/dL (13.5-17.5); Lymphocytes # (auto) 1.8 10 ^3/uL (0.4-5.4); Lymphocytes % (auto) 19.3 % (10.0-50.0); Mean Corpuscular Hgb Conc. 34.5 g/dL (32.0-36.0); Monocytes # (auto) 0.7 10 ^3/uL (0-1.3); Neutrophils # (auto) 6.7 10 ^3/uL (1.6-8.6); Neutrophils % (auto) 70.8 % (37.0-80.0); Red Blood Cells 5.03 10^6/uL (4.5-5.90); Red Cell Distribution Width 13.3 % (11.8-14.3); White Blood Cell 9.4 10^3/uL (4.4-10.8)
[2023-10-22 11:32] LABS: Alanine Aminotransferase 10 U/L (7-40); Albumin 4.3 g/dL (3.2-4.8); Alkaline Phosphatase 126 U/L (46-116); Anion Gap 4 (5-15); Aspartate Aminotransferase < 8 U/L (13-40); BUN/Creatinine Ratio 13.3 (10.0-20.0); Bilirubin, Direct 0.2 mg/dL (<0.3); Bilirubin, Total 0.6 mg/dL (0.2-1.0); Blood Urea Nitrogen 14 mg/dL (9-23); Calcium 9.5 mg/dL (8.5-10.1); Carbon Dioxide 28 mmol/L (20-30); Chloride 106 mmol/L (98-107); Cholesterol 164 mg/dL (< 200); Glucose 276 mg/dL (74-106); HDL Cholesterol 39 mg/dL (40-59); LDL Cholesterol 115 mg/dL (< 100); Potassium 4.2 mmol/L (3.5-5.1); Sodium 138 mmol/L (136-145); Total Protein 7.1 g/dL (5.7-8.2); Triglycerides 93 mg/dL (< 150)
== END | disposition home or self-care (01) ==
LOC: LAB 10:17
PROVIDERS: ATTEND Internal Medicine Cardiovascular Disease
DX: C61 Malignant neoplasm of prostate (principal); E11.9 Type 2 diabetes mellitus without complications; D51.3 Other dietary vitamin B12 deficiency anemia; I10 Essential (primary) hypertension; E55.9 Vitamin D deficiency, unspecified; R00.2 Palpitations
CPT/HCPCS: 36415; 80048; 80061; 80076; 81003; 83036; 84153; 84403; 84443; 85025

== ENCOUNTER → 2024-02-21 | Outpatient (CLI) | payer MEDICARE, OTHER | END | disposition home or self-care (01) | LOC: Rad HDHVI 15:43 | PROVIDERS: ATTEND Internal Medicine Cardiovascular Disease | DX: I10 Essential (primary) hypertension (principal) | CPT/HCPCS: 93306 ==

== ENCOUNTER → 2024-02-28 | Outpatient (CLI) | payer MEDICARE, OTHER ==
[~2024-02-28] VITALS: Ht 167.6 cm; Wt 90.3 kg
[~2024-02-28] MED LIST changes: +ADENOSINE 76 MG in GIVE UN-DILUTED 0 ML IV ONE; +ADENOSINE 90 MG/30 ML INJ IV ONE
== END | disposition home or self-care (01) ==
LOC: Rad HDHVI 14:05
PROVIDERS: ATTEND Internal Medicine Cardiovascular Disease
DX: I11.0 Hypertensive heart disease with heart failure (principal); I50.43 Acute on chronic combined systolic (congestive) and diastolic (congestive) heart failure; E11.9 Type 2 diabetes mellitus without complications; I25.2 Old myocardial infarction; Z95.1 Presence of aortocoronary bypass graft; I21.9 Acute myocardial infarction, unspecified; I25.5 Ischemic cardiomyopathy; I35.1 Nonrheumatic aortic (valve) insufficiency; E78.00 Pure hypercholesterolemia, unspecified; I73.9 Peripheral vascular disease, unspecified; I25.10 Atherosclerotic heart disease of native coronary artery without angina pectoris; Z82.49 Family history of ischemic heart disease and other diseases of the circulatory system
CPT/HCPCS: 78452; 93005; 96374; 96375; A9500; J0153

== ENCOUNTER → 2024-05-18 | Outpatient (CLI) | payer MEDICARE, OTHER ==
[~2024-05-18] MED LIST changes: -ADENOSINE 76 MG in GIVE UN-DILUTED 0 ML IV ONE; -ADENOSINE 90 MG/30 ML INJ IV ONE
[2024-05-18 12:57] LABS: Basophils # (auto) 0 10 ^3/uL (0-0.2); Basophils % (auto) 0.4 % (0.0-2.0); Eosinophils # (auto) 0.1 10 ^3/uL (0-0.8); Eosinophils % (auto) 1.4 % (0.0-7.0); Hematocrit 43.1 % (41.0-53.0); Hemoglobin 14.5 g/dL (13.5-17.5); Lymphocytes % (auto) 21.9 % (10.0-50.0); Mean Corpuscular Hemoglobin 30.1 pg (28.0-32.0); Mean Corpuscular Hgb Conc. 33.7 g/dL (32.0-36.0); Mean Corpuscular Volume 89.3 fL (80.0-100.0); Monocytes # (auto) 0.8 10 ^3/uL (0-1.3); Monocytes % (auto) 8.8 % (0.0-12.0); Neutrophils # (auto) 6.1 10 ^3/uL (1.6-8.6); Neutrophils % (auto) 67.5 % (37.0-80.0); Platelet Count (auto) 229 10^3/uL (140-450); Red Blood Cells 4.83 10^6/uL (4.5-5.90)
[2024-05-18 13:26] LABS: Alanine Aminotransferase 13 U/L (7-40); Albumin 4.3 g/dL (3.2-4.8); Alkaline Phosphatase 115 U/L (46-116); Anion Gap 5 (5-15); BUN/Creatinine Ratio 13.9 (10.0-20.0); Blood Urea Nitrogen 17 mg/dL (9-23); Calcium 10.4 mg/dL (8.7-10.4); Carbon Dioxide 30 mmol/L (20-31); LDL Cholesterol 61 mg/dL (< 100); Potassium 4.5 mmol/L (3.5-5.1); Sodium 142 mmol/L (136-145); Triglycerides 55 mg/dL (< 150)
[2024-05-18 13:27] LABS: Aspartate Aminotransferase 11 U/L (13-40); Bilirubin, Total 0.4 mg/dL (0.2-1.0); Chloride 107 mmol/L (98-107); Cholesterol 99 mg/dL (< 200); Glucose 147 mg/dL (74-106); HDL Cholesterol 34 mg/dL (40-59); Total Protein 7.2 g/dL (5.7-8.2)
== END | disposition home or self-care (01) ==
LOC: LAB 12:42
PROVIDERS: ATTEND Internal Medicine
DX: I10 Essential (primary) hypertension (principal); E11.9 Type 2 diabetes mellitus without complications
CPT/HCPCS: 36415; 80053; 80061; 83036; 85025

== ENCOUNTER 2024-05-29 11:06 | Emergency (ER) | payer MEDICARE, OTHER ==
[~2024-05-29] VITALS: Ht 167.6 cm; Wt 90.9 kg
--- NOTE | 2024-05-29 11:40 | ED.PDOC ---
General HPI Comments 73 y.o male with PMHx of CVA, DM and IN, presents to the ED for a chief complaint of left sided flank pain associated with dysuria that presented 2 weeks ago. Patient describes pain as sharp, non radiating, constant, and rating a 10/10 on the pain scale. Patient denies any nausea, vomiting, diarrhea, fever, chills, hematuria or back pain. Patient denies substance, alcohol or tobacco use. Chief Complaint: Flank Pain Time Seen by MD: 11:18 Primary Care Provider: ELVIA Reviewed notes: Nurses Notes, Medications, Allergies Allergies: Coded Allergies: NO KNOWN ALLERGIES (Unverified , 05/20/16) Home Meds Reported Medications Furosemide (Furosemide) 40 Mg Tab, 40 MG PO BID, #60 TAB 06/02/16 Amiodarone Hcl (AMIODARONE HCL) 100 Mg Tab, 100 MG PO DAILY, TAB 06/02/16 Atorvastatin Calcium (Lipitor) 20 Mg Tab, 1 TAB PO HS, #30 TAB 1 Refill 06/02/16 Docusate Sodium (Docusate Sodium) 100 Mg Tab, 100 MG PO Q12HR, #30 TAB 06/02/16 Glyburide (Glyburide) 2.5 Mg Tab, 2.5 MG PO QAM, TAB 06/02/16 Ferrous Sulfate (Ferrous Sulfate) 325 Mg Tab, 325 MG PO BID, #60 TAB 06/02/16 Pantoprazole Sodium Sesquihydr (Pantoprazole Sodium) 40 Mg Tab, 40 MG PO, #30 TAB 06/02/16 Clopidogrel Bisulfate (Plavix) 75 Mg Tab, 1 TAB PO DAILY, #30 TAB 5 Refills 06/02/16 Metoprolol Tartrate (Metoprolol Tartrate) 100 Mg Tab, 1 TAB PO BID, #60 TAB 5 Refills 06/02/16 Throat Lozenges (Cepastat) 1 Kvng Lz, 1 KVNG MT Q2HP PRN for FOR SORE THROAT 06/02/16 Digoxin (LANOXIN TABLET) 0.125 Mg Tb, 0.125 MG PO DAILY, #30 06/02/16 Alprazolam (Alprazolam) 0.5 Mg Tab, 1 TAB PO Q12HP PRN for ANXIETY, #30 TAB 06/02/16 Insulin Detemir (Levemir) Inj, 10 SC QPM, INJ 06/02/16 Insulin Detemir (Levemir) Inj, 15 SC QAM, INJ 06/02/16 Information Source: Patient Mode of Arrival: Wheelchair Severity: Moderate Timing: Weeks (2) Duration: Since onset Onset: Spontaneous Symptoms: Dysuria History of: None Location: (L)Flank Penile discharge: None associated signs and symptoms: Dysuria Past Medical History PAST MEDICAL HISTORY: CVA, DM, HTN, IN Surgical History: CABG, PTCA Family History Family History: Unknown Social History Smoker: Non-Smoker Alcohol: Denies ETOH Use Drugs: Denies Drug Use Lives In: Home Constitutional: denies: chills, diaphoresis, fatigue, fever, malaise, sweats, weakness, others EENTM: denies: blurred vision, double vision, ear bleeding, ear discharge, ear drainage, ear pain, ear ringing, eye pain, eye redness, hearing loss, mouth pain, mouth swelling, nasal discharge, nose bleeding, nose congestion, nose pain, photophobia, tearing, throat pain, throat swelling, voice changes, others Respiratory: denies: cough, hemoptysis, orthopnea, SOB at rest, shortness of breath, SOB with excertion, stridor, wheezing, others Cardiovascular: denies: chest pain, dizzy spells, diaphoresis, Dyspnea on exertion, edema, irregular heart beat, left arm pain, lightheadedness, p alpitations, PND, syncope, others Gastrointestinal: denies: abdomen distended, abdominal pain, blood streaked bowels, constipated, diarrhea, dysphagia, difficulty swallowing, hematemesis, melena, nausea, poor appetite, poor fluid intake, rectal bleeding, rectal pain, vomiting, others Genitourinary: reports: burning, dysuria, flank pain; denies: frequency, hematuria, incontinence, penile discharge, penile sore, pain, testicle pain, testicle swelling, urgency, others Neurological: denies: dizziness, fainting, headache, left sided numbness, left sided weakness, numbness, paresthesia, pre-existing deficit, right sided numbness, right sided weakness, seizure, speech problems, tingling, tremors, weakness, others Musculoskeletal: denies: back pain, gout, joint pain, joint swelling, muscle pain, muscle stiffness, neck pain, others Integumetry: denies: bruises, change in color, change in hair/nails, dryness, laceration, lesions, lumps, rash, wounds, others Allergic/Immunocompromised: denies: Difficulty Healing, Frequent Infections, Hives, Itching, others Hematologic/Lymphatic: denies: anemia, blood clots, easy bleeding, easy bruising, swollen glands, others Endocrine: denies: excessive hunger, excessive sweating, excessive thirst, excessive urination, flushing, intolerance to cold, intolerance to heat, unexplained weight gain, unexplained weight loss, others Psychiatric: denies: anxiety, bipolar disorder, depression, hopeless, panic disorder, schizophrenia, sleepless, suicidal, others All Other Systems: Reviewed and Negative Physical Exam General Appearance: Moderate Distress HEENT: Normal ENT Inspection, Pharynx Normal, TMs Normal Neck: Full Range of Motion, Non-Tender, Normal, Normal Inspection Respiratory: Chest Non-Tender, Lungs Clear, No Accessory Muscle Use, No Resp iratory Distress, Normal Breath Sounds Cardiovascular: No Edema, No JVD, No Murmur, No Gallop, Normal Peripheral Pulses, Regular Rate/Rhythm Breast Exam: Deferred Gastrointestinal: No Organomegaly, Non Tender, No Pulsatile Mass, Normal Bowel Sounds, Soft Genitalia: Deferred Pelvic: Deferred Rectal: Deferred Extremities: No calf tenderness, Normal capillary refill, Normal inspection, Normal range of motion, Non-tender, No pedal edema Musculoskeletal : Location: Left Extremity Location: Back Apperance: Tenderness: Moderate Neurologic: Alert, topographical surveyor II-XII nml as Tested, No Motor Deficits, Normal Affect, Normal Mood, No Sensory Deficits Cerebellar Function: Normal Reflexes: Normal Skin: Dry, Normal Color, Warm Lymphatic: No Adenopathy Was a procedure done? Was a procedure done?: No Differential Diagnosis Kidney stone (Female): N/A Kidney stone (Male): Pyelonephritis, Strain, Urinary obstruction, Urolithiasis, Urinary tract infection Urinary Problem (Male): Urethritis, Urolithiasis, UTI X-Ray, Labs, Meds, VS Vital Signs Date Time Temp Pulse Resp B/P (MAP) Pulse Ox O2 Delivery O2 Flow Rate FiO2 05/29/24 13:20 57 18 106/38 05/29/24 12:00 60 14 105/54 (71) 99 05/29/24 11:55 57 17 138/45 05/29/24 11:43 57 17 100 Room Air* 0 21 05/29/24 11:43 97.9 57 17 138/45 (76) 100 97.9 05/29/24 11:16 97.1 59 20 135/31 (65) 98 143/40 (74) Lab Test 05/29/24 11:51 Range/Units White Blood Count 10.4 4.4-10.8 10^3/uL Red Blood Count 5.48 4.5-5.90 10^6/uL Hemoglobin 16.6 13.5-17.5 g/dL Hematocrit 49.0 41.0-53.0 % Mean Corpuscular Volume 89.5 80.0-100.0 fL Mean Corpuscular Hemoglobin 30.3 28.0-32.0 pg Mean Corpuscular Hemoglobin Concent 33.9 32.0-36.0 g/dL Red Cell Distribution Width 14.2 11.8-14.3 % Platelet Count 264 140-450 10^3/uL Mean Platelet Volume 9.5 6.9-10.8 fL Neutrophils (%) (Auto) 77.6 37.0-80.0 % Lymphocytes (%) (Auto) 13.8 10.0-50.0 % Monocytes (%) (Auto) 7.6 0.0-12.0 % Eosinophils (%) (Auto) 0.7 0.0-7.0 % Basophils (%) (Auto) 0.3 0.0-2.0 % Neutrophils # (Auto) 8.0 1.6-8.6 10 ^3/uL Lymphocytes # (Auto) 1.4 0.4-5.4 10 ^3/uL Monocytes # (Auto) 0.8 0-1.3 10 ^3/uL Eosinophils # (Auto) 0.1 0-0.8 10 ^3/uL Basophils # (Auto) 0 0-0.2 10 ^3/uL Nucleated Red Blood Cells 0.0 % Sodium Level 138 136-145 mmol/L Potassium Level 4.1 3.5-5.1 mmol/L Chloride Level 104 98-107 mmol/L Carbon Dioxide Level 27 20-31 mmol/L Anion Gap 7 5-15 Blood Urea Nitrogen 21 9-23 mg/dL Creatinine 1.21 0.700-1.30 mg/dL Glomerular Filtration Rate Calc 64 >90 mL/min BUN/Creatinine Ratio 17.4 10.0-20.0 Serum Glucose 156 H 74-106 mg/dL Calcium Level 10.8 H 8.7-10.4 mg/dL Total Bilirubin 0.8 0.2-1.0 mg/dL Aspartate Amino Transferase (AST) 13 13-40 U/L Alanine Aminotransferase (ALT) 15 7-40 U/L Alkaline Phosphatase 120 H 46-116 U/L Total Protein 8.1 5.7-8.2 g/dL Albumin 4.6 3.2-4.8 g/dL Lipase 26 12-53 U/L Current Medications Medications (Trade) Dose Ordered Sig/Shey Route Start Time Stop Time Status Last Admin Ondansetron HCl (Zofran) 4 mg ONCE ONCE IV 05/29/24 11:30 05/29/24 11:31 DC 05/29/24 11:56 Morphine Sulfate 4 mg ONCE ONCE IV 05/29/24 11:30 05/29/24 11:31 DC 05/29/24 11:55 Sodium Chloride 500 ml @ 500 mls/hr Q1H ONCE IVB 05/29/24 11:30 05/29/24 12:29 DC 05/29/24 11:56 Exam: CT CT AB PEL WO CON-NO ORAL OR IV IMPRESSION: 1. No acute abdominal or pelvic findings. The patient had an IV Hep-Lock established The patient was given morphine 4 mg IV push for the pain The patient was given Zofran 4 mg IV push for the nausea The patient was bolused with normal saline at 500 cc The CBC and chemistry panel are within normal limits except for hyperglycemia at 156 The patient was being admitted to the hospitalist at this time We have discussed the findings with the patient The patient was still having intense abdominal pain we do not have a working diagnosis and at this time the patient was being admitted with abdominal pain unknown etiology Images Reviewed?: Images reviewed and evaluated by me Time of 1ST Reevaluation: 11:40 Reevaluation 1ST: Unchanged Patient Education/Counseling: Diagnosis, Treatment, Prognosis Family Education/Counseling: No Family Present Departure 1 Departure Time of Disposition: 14:10 Impression: Primary Impression: Intractable abdominal pain Disposition: 09 ADMITTED INPATIENT Admit to: Med Surg Condition: Fair Critical Care Note Critical Care Time?: No Stability Stability form required: No I personally scribed for NASRA HUMPHREYS MD ([email or web address]) on 05/29/24 at 11:40. Electronically submitted by Ayana Lay ([facility]). I personally scribed for NASRA HUMPHREYS MD ([email or web address]) on 05/29/24 at 13:14. Electronically submitted by Ayana Lay ([facility]). NASRA HUMPHREYS MD May 29, 2024 11:40
[2024-05-29 11:43] VITALS: PULSE 57; RESP 17; TEMP 97.9; O2SAT 100
--- NOTE | 2024-05-29 11:49 | DVH ---
Exam: CT CT AB PEL WO CON-NO ORAL OR IV History: right flank pain Comparison Study: [facility] on DOS: 05/18/22 Technique: Multidetector spiral CT of the abdomen and pelvis was performed from lung bases to pubic symphysis. Imaging was performed without IV contrast. Axial, coronal and sagittal multiplanar reform ats were obtained from the axial data set by the technologist. Radiation dose : Abdomen/Pelvis: CTDIvol 11 mGy, DLP 651 mGy*cm. Findings: Evaluation of solid organs is limited due to lack of intravenous contrast use. Lung Bases: No acute or significant lung base finding. Normal heart size. No pleural or pericardial effusion. Liver: The liver is normal in size. No focal lesions. Gallbladder and biliary Tree: Unremarkable Spleen: Unremarkable Pancreas: The pancreas is grossly normal in appearance. Adrenal Glands: Unremarkable Kidneys: Kidneys are grossly normal without calculi or hydronephrosis. Bladder: Grossly unremarkable for degree of distention. Bowel: The stomach is grossly normal in appearance. Small bowel and colon are normal in caliber and d istribution. The appendix is not visualized; however, no secondary findings of acute appendicitis id entified. Ascites: Absent Lymphadenopathy: No mesenteric, retroperitoneal or periportal lymphadenopathy. Abdominal wall and Mesentery: Unremarkable. Vasculature: The visualized abdominal aorta is normal in size and caliber. There is extensive athero sclerotic calcification of the aorta and its branches. Evaluation of abdominal and pelvic vessels is limited due to lack of intravenous contrast. Pelvic Organs: Unremarkable Musculoskeletal: Grade 1 anterolisthesis of L4 on L5. IMPRESSION: 1. No acute abdominal or pelvic findings. Radiation optimization: All CT scans at this facility use at least one of these dose optimization pablo hniques: Automated exposure control mA and/or kV adjustment per patient size (includes targeted exams where dose is matched to clinical indication) or iterative reconstruction. HS:Y
[2024-05-29] MEDS: MORPHINE SULFATE 4 MG/ML SYR/VIAL IV ONE (11:55)
[2024-05-29] MEDS: ONDANSETRON HCL 4 MG/2 ML VIAL IV ONE (11:56)
[2024-05-29] MEDS: SODIUM CHLORIDE 0.9% 500 ML IVB ONE (11:56)
[2024-05-29 12:16] LABS: Basophils # (auto) 0 10 ^3/uL (0-0.2); Basophils % (auto) 0.3 % (0.0-2.0); Eosinophils # (auto) 0.1 10 ^3/uL (0-0.8); Eosinophils % (auto) 0.7 % (0.0-7.0); Hemoglobin 16.6 g/dL (13.5-17.5); Lymphocytes # (auto) 1.4 10 ^3/uL (0.4-5.4); Lymphocytes % (auto) 13.8 % (10.0-50.0); Mean Corpuscular Hemoglobin 30.3 pg (28.0-32.0); Mean Corpuscular Hgb Conc. 33.9 g/dL (32.0-36.0); Mean Corpuscular Volume 89.5 fL (80.0-100.0); Monocytes # (auto) 0.8 10 ^3/uL (0-1.3); Monocytes % (auto) 7.6 % (0.0-12.0); Neutrophils % (auto) 77.6 % (37.0-80.0); Platelet Count (auto) 264 10^3/uL (140-450); Red Blood Cells 5.48 10^6/uL (4.5-5.90); Red Cell Distribution Width 14.2 % (11.8-14.3); White Blood Cell 10.4 10^3/uL (4.4-10.8)
[2024-05-29 12:58] LABS: Alanine Aminotransferase 15 U/L (7-40); Albumin 4.6 g/dL (3.2-4.8); Anion Gap 7 (5-15); BUN/Creatinine Ratio 17.4 (10.0-20.0); Blood Urea Nitrogen 21 mg/dL (9-23); Carbon Dioxide 27 mmol/L (20-31); Chloride 104 mmol/L (98-107); Lipase 26 U/L (12-53); Potassium 4.1 mmol/L (3.5-5.1); Sodium 138 mmol/L (136-145)
[2024-05-29 12:59] LABS: Bilirubin, Total 0.8 mg/dL (0.2-1.0); Total Protein 8.1 g/dL (5.7-8.2)
[2024-05-29 13:02] LABS: Alkaline Phosphatase 120 U/L (46-116); Aspartate Aminotransferase 13 U/L (13-40); Calcium 10.8 mg/dL (8.7-10.4); Glucose 156 mg/dL (74-106)
[2024-05-29 17:00] VITALS: BP 145/47; PULSE 57; RESP 14; O2SAT 98
== END 2024-05-29 20:12 | disposition left against medical advice (07) ==
LOC: ER 11:06
DX: R10.9 Unspecified abdominal pain (principal); E11.9 Type 2 diabetes mellitus without complications; I10 Essential (primary) hypertension; Z79.899 Other long term (current) drug therapy; Z86.73 Personal history of transient ischemic attack (TIA), and cerebral infarction without residual deficits
CPT/HCPCS: 36415; 74176; 80053; 83690; 85025; 96374; 96375; 99285; J2270; J2405; J7040; 96361

== ENCOUNTER → 2024-11-08 | Outpatient (CLI) | payer MEDICARE, OTHER ==
[2024-11-08 11:53] LABS: Hematocrit 41.0 % (41.0-53.0); Hemoglobin 14.2 g/dL (13.5-17.5); Mean Corpuscular Hemoglobin 30.6 pg (28.0-32.0); Mean Corpuscular Volume 88.2 fL (80.0-100.0); Nucleated Red Blood Cells % 0.1 %
[2024-11-08 12:25] LABS: Prostate Specific Antigen 0.66 ng/mL (0.0-4.0)
[2024-11-08 12:27] LABS: Alanine Aminotransferase 14 U/L (7-40); Albumin 4.6 g/dL (3.2-4.8); Alkaline Phosphatase 102 U/L (46-116); Anion Gap 7 (5-15); BUN/Creatinine Ratio 15.2 (10.0-20.0); Blood Urea Nitrogen 17 mg/dL (9-23); Carbon Dioxide 31 mmol/L (20-31); Chloride 102 mmol/L (98-107); Cholesterol 98 mg/dL (< 200); Potassium 4.5 mmol/L (3.5-5.1); Sodium 140 mmol/L (136-145); Total Protein 7.2 g/dL (5.7-8.2); Triglycerides 61 mg/dL (< 150)
[2024-11-08 12:28] LABS: Bilirubin, Direct 0.2 mg/dL (<0.3); Bilirubin, Total 0.4 mg/dL (0.2-1.0)
[2024-11-08 12:29] LABS: Calcium 10.7 mg/dL (8.7-10.4); Glucose 179 mg/dL (74-106); HDL Cholesterol 36 mg/dL (40-59)
[2024-11-08 12:30] LABS: Free T4 (Free Thyroxine) 1.29 ng/dL (0.89-1.76)
[2024-11-08 13:55] LABS: Urine Protein, UAD 1+ (Negative)
== END | disposition home or self-care (01) ==
LOC: LAB 11:32
PROVIDERS: ATTEND Internal Medicine Cardiovascular Disease
DX: C61 Malignant neoplasm of prostate (principal); E11.9 Type 2 diabetes mellitus without complications; D51.3 Other dietary vitamin B12 deficiency anemia; D64.9 Anemia, unspecified; E55.9 Vitamin D deficiency, unspecified; R30.0 Dysuria; R00.2 Palpitations; R53.1 Weakness
CPT/HCPCS: 36415; 80053; 80061; 80076; 81003; 83036; 84153; 84403; 84439; 84443; 85025

== ENCOUNTER 2024-12-05 08:09 | Outpatient (CLI) | payer MEDICARE, OTHER | END 2024-12-05 17:00 | disposition home or self-care (01) | LOC: Rad HDHVI 08:09 | PROVIDERS: ATTEND Internal Medicine Cardiovascular Disease | DX: I08.3 Combined rheumatic disorders of mitral, aortic and tricuspid valves (principal); I10 Essential (primary) hypertension; E78.5 Hyperlipidemia, unspecified | CPT/HCPCS: 93306 ==

== ENCOUNTER 2024-12-18 07:59 | Outpatient (CLI) | payer MEDICARE, OTHER ==
[~2024-12-18] VITALS: Ht 167.6 cm; Wt 81.6 kg
[2024-12-18] MEDS ORDERED: ADENOSINE 90 MG/30 ML INJ IV ONE (08:37)
[2024-12-18] MEDS ORDERED: ADENOSINE 69 MG in GIVE UN-DILUTED 0 ML IV ONE (08:45)
== END 2024-12-18 17:00 | disposition home or self-care (01) ==
LOC: Rad HDHVI 07:59
PROVIDERS: ATTEND Internal Medicine Cardiovascular Disease
DX: I49.1 Atrial premature depolarization (principal); R00.1 Bradycardia, unspecified; I25.10 Atherosclerotic heart disease of native coronary artery without angina pectoris; I11.0 Hypertensive heart disease with heart failure; I50.23 Acute on chronic systolic (congestive) heart failure; I73.9 Peripheral vascular disease, unspecified; I25.5 Ischemic cardiomyopathy; I21.9 Acute myocardial infarction, unspecified; I25.2 Old myocardial infarction; E11.40 Type 2 diabetes mellitus with diabetic neuropathy, unspecified; E78.00 Pure hypercholesterolemia, unspecified; Z82.49 Family history of ischemic heart disease and other diseases of the circulatory system; Z95.1 Presence of aortocoronary bypass graft
CPT/HCPCS: 78452; 93017; A9500; J0153